=== PATIENT | female | born 1945 | race Caucasian/White ===

== ENCOUNTER → 2019-02-03 | Outpatient (CLI) | payer MEDICARE ==
--- NOTE | 2019-02-03 11:30 | Diagnostic Imaging Report ---
PROCEDURE: US carotid duplex, bilateral. TECHNIQUE: Multiple real-time grayscale images were obtained over the carotid arteries in various projections, bilaterally. Additional spectral analysis and color Doppler duplex images were also obtained. INDICATION: Near-syncope. There is mild plaquing in the distal common carotid arteries and bifurcations with plaque seen in the proximal internal carotid arteries as well. No significant velocity elevation is identified. Both vertebral arteries show antegrade flow. IMPRESSION: Mild bilateral carotid plaque. There is no evidence of a hemodynamically significant stenosis. Parameters based on the consensus panel [place] and Doppler ultrasound criteria published July 2003, Radiology, Volume 229. DOPPLER (peak systolic velocity M/S Right Left CCA .58 .72 ICA Proximal .57 .69 ICA Mid .79 .86 ICA Distal 1.19 1.19 RATIO 2.0 1.6 ECA .95 .77 VERT .60 1.27 Dictated by: Dictated on workstation # [id number]
== END ==
LOC: CARD 10:04
PROVIDERS: ATTEND Internal Medicine Interventional Cardiology
DX: I73.9 Peripheral vascular disease, unspecified (principal); R55 Syncope and collapse; I25.10 Atherosclerotic heart disease of native coronary artery without angina pectoris; J44.9 Chronic obstructive pulmonary disease, unspecified; R42 Dizziness and giddiness; I07.1 Rheumatic tricuspid insufficiency; I65.23 Occlusion and stenosis of bilateral carotid arteries
CPT/HCPCS: 93306; 93880; 93922

== ENCOUNTER 2019-06-08 08:28 | Emergency (ER) | payer MEDICARE ==
[~2019-06-08] VITALS: Ht 167.7 cm; Wt 75.0 kg
[2019-06-08 08:53] LABS: BASOPHILS % (AUTO) 1 % (0-10); EOSINOPHILS # (AUTO) 0.2 10^3/uL (0.0-0.3); EOSINOPHILS % (AUTO) 3 % (0-10); HEMATOCRIT 36 % (35-52); LYMPHOCYTES # (AUTO) 2.5 X 10^3 (1.0-4.0); LYMPHOCYTES % (AUTO) 38 % (12-44); MEAN CORPUSCULAR HEMOGLOBIN 29 PG (25-34); MEAN CORPUSCULAR HGB CONC 34 G/DL (32-36); MEAN CORPUSCULAR VOLUME 86 FL (80-99); MEAN PLATELET VOLUME 9.9 FL (7.4-10.4); MONOCYTES # (AUTO) 0.5 X 10^3 (0.0-1.0); MONOCYTES % (AUTO) 8 % (0-12); NEUTROPHILS # (AUTO) 3.2 X 10^3 (1.8-7.8); NEUTROPHILS % (AUTO) 50 % (42-75); PLATELET COUNT 280 10^3/uL (130-400); WHITE BLOOD COUNT 6.5 10^3/uL (4.3-11.0)
--- NOTE | 2019-06-08 09:00 | ED Cardiac General ---
History of Present Illness General Chief Complaint: Chest Pain Stated Complaint: CHEST HEAVINESS Source: patient Exam Limitations: no limitations History of Present Illness Date Seen by Provider: Jun 08, 2019 Time Seen by Provider: 08:57 Initial Comments Patient complains of left lateral epicondylar pain off-and-on since yesterday. Last a few seconds at a time. There are no precipitating factors. She has a history of coronary artery disease and has had 3 stents. She denies injury to left elbow. She denies chest pain or shortness of air. Timing/Duration: 24 hours, intermittent Severity: moderate Location: other Activities at Onset: none Allergies and Home Medications Patient Home Medication List Home Medication List Reviewed: Yes Review of Systems Review of Systems Constitutional: no symptoms reported EENTM: No Symptoms Reported Respiratory: No Symptoms Reported Cardiovascular: No Symptoms Reported Gastrointestinal: No Symptoms Reported Musculoskeletal: joint pain Skin: no symptoms reported Psychiatric/Neurological: No Symptoms Reported All Other Systems Reviewed Negative Unless Noted: Yes Past Wepudfp-Qixzdt-Fpmhzm Hx Patient Social History Alcohol Use: Denies Use Smoking Status: Former Smoker Physical Abuse: No Sexual Abuse: No Mistreated: No Fear: No Physical Exam Vital Signs Vital Signs - First Documented Capillary Refill : Height, Weight, BMI Height: '" Weight: lbs. oz. kg; BMI Method: General Appearance: No Apparent Distress, WD/WN HEENT: PERRL/EOMI, Pharynx Normal Neck: Supple Respiratory: Chest Non Tender, Lungs Clear, Normal Breath Sounds Cardiovascular: Regular Rate, Rhythm, No Murmur, Normal Peripheral Pulses Gastrointestinal: Soft Extremity: Normal Inspection, Normal Range of Motion, Other (pain reproduced with pressure over left lateral epicondyle) Neurologic/Psychiatric: Alert, No Motor/Sensory Deficits Skin: Normal Color, Warm/Dry Progress/Results/Core Measures Results/Orders Lab Results Laboratory Tests Test 06/08/19 08:43 Range/Units White Blood Count 6.5 4.3-11.0 10^3/uL Red Blood Count 4.16 L 4.35-5.85 10^6/uL Hemoglobin 12.0 11.5-16.0 G/DL Hematocrit 36 35-52 % Mean Corpuscular Volume 86 80-99 FL Mean Corpuscular Hemoglobin 29 25-34 PG Mean Corpuscular Hemoglobin Concent 34 32-36 G/DL Red Cell Distribution Width 14.0 10.0-14.5 % Platelet Count 280 130-400 10^3/uL Mean Platelet Volume 9.9 7.4-10.4 FL Neutrophils (%) (Auto) 50 42-75 % Lymphocytes (%) (Auto) 38 12-44 % Monocytes (%) (Auto) 8 0-12 % Eosinophils (%) (Auto) 3 0-10 % Basophils (%) (Auto) 1 0-10 % Neutrophils # (Auto) 3.2 1.8-7.8 X 10^3 Lymphocytes # (Auto) 2.5 1.0-4.0 X 10^3 Monocytes # (Auto) 0.5 0.0-1.0 X 10^3 Eosinophils # (Auto) 0.2 0.0-0.3 10^3/uL Basophils # (Auto) 0.0 0.0-0.1 10^3/uL Prothrombin Time 12.8 12.2-14.7 SEC INR Comment 0.9 0.8-1.4 Activated Partial Thromboplast Time 26 24-35 SEC Sodium Level 135 135-145 MMOL/L Potassium Level 4.3 3.6-5.0 MMOL/L Chloride Level 96 L 98-107 MMOL/L Carbon Dioxide Level 27 21-32 MMOL/L Anion Gap 12 5-14 MMOL/L Blood Urea Nitrogen 16 7-18 MG/DL Creatinine 0.86 0.60-1.30 MG/DL Estimat Glomerular Filtration Rate > 60 BUN/Creatinine Ratio 19 Glucose Level 109 H 70-105 MG/DL Calcium Level 9.1 8.5-10.1 MG/DL Corrected Calcium 8.9 8.5-10.1 MG/DL Magnesium Level 2.3 1.6-2.4 MG/DL Total Bilirubin 0.3 0.1-1.0 MG/DL Aspartate Amino Transf (AST/SGOT) 25 5-34 U/L Alanine Aminotransferase (ALT/SGPT) 20 0-55 U/L Alkaline Phosphatase 93 40-136 U/L Troponin I < 0.30 <0.30 NG/ML Total Protein 6.4 6.4-8.2 GM/DL Albumin 4.2 3.2-4.5 GM/DL My Orders Orders - FANY LOPEZ MD Cbc With Automated Diff (06/08/19 08:36) Magnesium (06/08/19 08:36) Chest 1 View Ap/Pa Only (06/08/19 08:36) Ekg Tracing (06/08/19 08:36) Comprehensive Metabolic Panel (06/08/19 08:36) Protime With Inr (06/08/19 08:36) Partial Thromboplastin Time (06/08/19 08:36) O2 (06/08/19 08:36) Monitor-Rhythm Ecg Trace Only (06/08/19 08:36) Ed Iv/Invasive Line Start (06/08/19 08:36) Troponin I (06/08/19 08:36) Elbow 3 View Left (06/08/19 08:54) Vital Signs/I&O 06/08/19 06/08/19 08:31 08:31 Temp 36.8 Pulse 65 Resp 20 B/P (MAP) 176/65 (102) Pulse Ox 98 O2 Delivery Room Air Room Air Progress Progress Note : Time: 09:33 Progress Note Patient remains comfortable and stable. Test results discussed with her. Stable for discharge. She has had a few spasms of pain while she was here. No chest pain. Initial ECG Impression Date: Jun 08, 2019 Initial ECG Impression Time: 08:31 Initial ECG Rate: 65 Initial ECG Rhythm: Normal Sinus Initial ECG Intervals: Normal Initial ECG Impression: Normal Departure Impression Primary Impression: Left elbow pain Additional Impression: Lateral epicondylitis Disposition: 01 HOME, SELF-CARE Condition: Stable Departure-Patient Inst. Decision time for Depature: 09:34 Referrals: NEENA ASHRAF MD (PCP/Family) Primary Care Physician Patient Instructions: Lateral Epicondylitis (DC) Add. Discharge Instructions: Ibuprofen for pain. Warm pack to elbow. you may also purchase a tennis elbow splint at the pharmacy. All discharge instructions reviewed with patient and/or family. Voiced understanding. FANY LOPEZ MD Jun 08, 2019 09:00
[2019-06-08 09:09] LABS: INR 0.9 (0.8-1.4); PROTHROMBIN TIME PATIENT 12.8 SEC (12.2-14.7)
[2019-06-08 09:13] LABS: CARBON DIOXIDE 27 MMOL/L (21-32); CHLORIDE 96 MMOL/L (98-107); POTASSIUM 4.3 MMOL/L (3.6-5.0); SODIUM 135 MMOL/L (135-145)
[2019-06-08 09:14] LABS: ALANINE AMINOTRANSFERASE 20 U/L (0-55); ALBUMIN 4.2 GM/DL (3.2-4.5); ALKALINE PHOSPHATASE 93 U/L (40-136); BILIRUBIN,TOTAL 0.3 MG/DL (0.1-1.0); BUN/CREATININE RATIO 19; CALCIUM 9.1 MG/DL (8.5-10.1); CREATININE SERUM 0.86 MG/DL (0.60-1.30); GFR ESTIMATED > 60; GLUCOSE 109 MG/DL (70-105); MAGNESIUM 2.3 MG/DL (1.6-2.4); TOTAL PROTEIN 6.4 GM/DL (6.4-8.2)
--- NOTE | 2019-06-08 09:23 | Diagnostic Imaging Report ---
PATIENT HISTORY: Chest pain. TECHNIQUE: Single frontal view of the chest COMPARISON: None FINDINGS: Lung volumes are large. No focal consolidation is seen. There is no pleural effusion or pneumothorax. The cardiac silhouette is normal in size and contour. There is aortic atherosclerosis. IMPRESSION: Large lung volumes with no acute pulmonary abnormality seen. Dictated by: Dictated on workstation # [id number]
--- NOTE | 2019-06-08 09:25 | Diagnostic Imaging Report ---
PATIENT HISTORY: Left elbow pain. No known trauma. TECHNIQUE: 3 views of the left elbow COMPARISON: None FINDINGS: No acute fracture or dislocation is seen in the left elbow. Alignment appears normal. Joint spaces are generally preserved. There is no significant left elbow joint effusion. IMPRESSION: No acute osseous abnormalities seen in the left elbow. Dictated by: Dictated on workstation # [id number]
[2019-06-08 09:49] VITALS: BP 134/56
== END 2019-06-08 09:49 | disposition home or self-care (01) ==
LOC: EDUNIT# 08:28 → ER FS 08:29
DX: M77.12 Lateral epicondylitis, left elbow (principal); I25.10 Atherosclerotic heart disease of native coronary artery without angina pectoris; Z95.5 Presence of coronary angioplasty implant and graft; Z87.891 Personal history of nicotine dependence
CPT/HCPCS: 36415; 71045; 73080; 80053; 83735; 84484; 85025; 85610; 85730; 93005; 93041

== ENCOUNTER → 2019-09-03 | Outpatient (CLI) | payer MEDICARE ==
--- NOTE | 2019-09-03 10:04 | Diagnostic Imaging Report ---
EXAMINATION: CHEST (PA AND LATERAL) CLINICAL INDICATION: 74-year-old female, shortness of breath. COMPARISON: June 08, 2019. FINDINGS: Stable overall appearance of the cardiomediastinal silhouette. There are aortic calcifications. There is no identified pneumothorax. There are small bilateral pleural effusions. There are streaky opacities in the lung bases. There is slight prominence of pulmonary interstitial markings which is slightly more prominent since comparison study. IMPRESSION: 1. Small bilateral pleural effusions with streaky opacities in the lung bases which may relate to atelectasis and/or infiltrate. 2. Mildly prominent interstitial opacities which do not appear to be slightly more prominent since comparison exam and may relate to mild pulmonary vascular congestion. Dictated by: Dictated on workstation # [id number]
== END ==
LOC: RAD FS 09:42
PROVIDERS: ATTEND Nurse Practitioner
DX: J90 Pleural effusion, not elsewhere classified (principal); J98.4 Other disorders of lung
CPT/HCPCS: 71046

== ENCOUNTER 2019-09-26 07:42 | Emergency (ER) | payer MEDICARE ==
[~2019-09-26] VITALS: Ht 167.7 cm; Wt 77.4 kg
--- NOTE | 2019-09-26 08:00 | ED General ---
General Stated Complaint: DIZZINESS Source of Information: Patient Exam Limitations: No Limitations History of Present Illness Date Seen by Provider: Sep 26, 2019 Time Seen by Provider: 07:48 Initial Comments The patient is a pleasant 74-year-old female who presents for evaluation of dizziness described as lightheadedness over the last 1-2 days. She states that symptoms get worse if she is standing versus if she is lying down. She also states the closing her eyes does seem to help. She denies room spinning/vertiginous symptoms. She reports having had similar lightheadedness in the past but states it always has resolved relatively quickly. 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 She takes Plavix but no other blood thinners. She is noted to be hypertensive upon arrival with a blood pressure of 187/73. She denies headache, neck pain, vision changes, ear ache/ringing, chest pain or shortness of breath, abdominal or back pain, nausea or vomiting, fevers or chills, focal weakness or numbness, difficulty speaking, confusion, or difficulty walking. She is alert and oriented 4, calm, and appears to be in no distress at this time. Timing/Duration: 1-2 Days Severity: Mild Associated Systoms: Denies Symptoms Allergies and Home Medications Allergies Coded Allergies: amoxicillin (Verified Allergy, Unknown, Diarrhea, 09/26/19) Diarrhea clavulanic acid (Verified Allergy, Unknown, Diarrhea, 09/26/19) Diarrhea Patient Home Medication List Home Medication List Reviewed: Yes Review of Systems Review of Systems Constitutional: dizziness EENTM: no symptoms reported Respiratory: no symptoms reported Cardiovascular: no symptoms reported Gastrointestinal: no symptoms reported Genitourinary: no symptoms reported Musculoskeletal: no symptoms reported Skin: no symptoms reported Psychiatric/Neurological: No Symptoms Reported Hematologic/Lymphatic: No Symptoms Reported Immunological/Allergic: no symptoms reported All Other Systems Reviewed Negative Unless Noted: Yes Past Vpczpdg-Qjcggc-Rfkupf Hx Past Med/Social Hx: Reviewed Nursing Past Med/Soc Hx Patient Social History Former Smoker, Quit: Sep 24, 1994 Recent Foreign Travel: No Recent Hopitalizations: No Immunizations Up To Date Tetanus Booster (TDap): Less than 5yrs Date of Pneumonia Vaccine: Oct 02, 2016 Seasonal Allergies Seasonal Allergies: No Past Medical History Surgeries: Yes (Foot surgery, Cornary stents x 3 w/ heart cath) Gallbladder, Hysterectomy, Orthopedic, Tonsillectomy Respiratory: Yes COPD Cardiac: Yes (Heart stents X 24 Jan 2017) Coronary Artery Disease, High Cholesterol, Hypertension Neurological: No Genitourinary: No Gastrointestinal: No Musculoskeletal: No Endocrine: No HEENT: No Cancer: No Psychosocial: No Integumentary: No Blood Disorders: No Physical Exam Vital Signs Vital Signs - First Documented 09/26/19 07:45 Temp 36.8 Pulse 72 Resp 20 B/P (MAP) 187/73 (111) Pulse Ox 97 Capillary Refill : Height, Weight, BMI Height: '" Weight: lbs. oz. kg; 26.00 BMI Method: General Appearance: No Apparent Distress, WD/WN Eyes: Bilateral Eye Normal Inspection, Bilateral Eye PERRL, Bilateral Eye Abnormal EOM HEENT: PERRL/EOMI, TMs Normal, Normal ENT Inspection Neck: Full Range of Motion, Non Tender Respiratory: Chest Non Tender, Lungs Clear, Normal Breath Sounds, No Accessory Muscle Use, No Respiratory Distress Cardiovascular: Regular Rate, Rhythm, No Edema, No JVD, No Murmur Gastrointestinal: Normal Bowel Sounds, No Pulsatile Mass, Non Tender, Soft Extremity: Normal Capillary Refill, Normal Inspection, Pedal Edema (1+ non- pitting edema) Neurologic/Psychiatric: Alert, Oriented x3, No Motor/Sensory Deficits, Normal Mood/Affect Skin: Normal Color, Warm/Dry Progress/Results/Core Measures Suspected Sepsis SIRS Temperature: Pulse: Respiratory Rate: Laboratory Tests 09/26/19 08:25: White Blood Count 4.9 Blood Pressure / Mean: Laboratory Tests 09/26/19 08:25: Creatinine 0.91, Platelet Count 262, Total Bilirubin 0.3 Results/Orders Lab Results Laboratory Tests Test 09/26/19 08:20 09/26/19 08:25 Range/Units Urine Color YELLOW Urine Clarity CLEAR Urine pH 7.5 5-9 Urine Specific Matthews 1.010 L 1.016-1.022 Urine Protein NEGATIVE NEGATIVE Urine Glucose (UA) NEGATIVE NEGATIVE Urine Ketones NEGATIVE NEGATIVE Urine Nitrite NEGATIVE NEGATIVE Urine Bilirubin NEGATIVE NEGATIVE Urine Urobilinogen 0.2 < = 1.0 MG/DL Urine Leukocyte Esterase TRACE NEGATIVE Urine RBC (Auto) NEGATIVE NEGATIVE Urine RBC NONE /HPF Urine WBC 0-2 /HPF Urine Squamous Epithelial Cells 0-2 /HPF Urine Crystals NONE /LPF Urine Bacteria NONE /HPF Urine Casts NONE /LPF Urine Mucus NEGATIVE /LPF Urine Culture Indicated NO White Blood Count 4.9 4.3-11.0 10^3/uL Red Blood Count 3.85 L 4.35-5.85 10^6/uL Hemoglobin 9.1 L 11.5-16.0 G/DL Hematocrit 29 L 35-52 % Mean Corpuscular Volume 75 L 80-99 FL Mean Corpuscular Hemoglobin 24 L 25-34 PG Mean Corpuscular Hemoglobin Concent 32 32-36 G/DL Red Cell Distribution Width 15.7 H 10.0-14.5 % Platelet Count 262 130-400 10^3/uL Mean Platelet Volume 10.1 7.4-10.4 FL Neutrophils (%) (Auto) 58 42-75 % Lymphocytes (%) (Auto) 26 12-44 % Monocytes (%) (Auto) 10 0-12 % Eosinophils (%) (Auto) 5 0-10 % Basophils (%) (Auto) 1 0-10 % Neutrophils # (Auto) 2.8 1.8-7.8 X 10^3 Lymphocytes # (Auto) 1.3 1.0-4.0 X 10^3 Monocytes # (Auto) 0.5 0.0-1.0 X 10^3 Eosinophils # (Auto) 0.2 0.0-0.3 10^3/uL Basophils # (Auto) 0.0 0.0-0.1 10^3/uL Sodium Level 136 135-145 MMOL/L Potassium Level 4.1 3.6-5.0 MMOL/L Chloride Level 102 98-107 MMOL/L Carbon Dioxide Level 24 21-32 MMOL/L Anion Gap 10 5-14 MMOL/L Blood Urea Nitrogen 11 7-18 MG/DL Creatinine 0.91 0.60-1.30 MG/DL Estimat Glomerular Filtration Rate 60 BUN/Creatinine Ratio 12 Glucose Level 97 70-105 MG/DL Calcium Level 8.8 8.5-10.1 MG/DL Corrected Calcium 9.0 8.5-10.1 MG/DL Total Bilirubin 0.3 0.1-1.0 MG/DL Aspartate Amino Transf (AST/SGOT) 22 5-34 U/L Alanine Aminotransferase (ALT/SGPT) 18 0-55 U/L Alkaline Phosphatase 76 40-136 U/L Troponin I < 0.30 <0.30 NG/ML Total Protein 5.6 L 6.4-8.2 GM/DL Albumin 3.7 3.2-4.5 GM/DL My Orders Orders - ROSSYASMIN DO Cbc With Automated Diff (09/26/19 07:45) Chest 1 View Ap/Pa Only (09/26/19 07:45) Ekg Tracing (09/26/19 07:45) Comprehensive Metabolic Panel (09/26/19 07:45) O2 (09/26/19 07:45) Monitor-Rhythm Ecg Trace Only (09/26/19 07:45) Ed Iv/Invasive Line Start (09/26/19 07:45) Troponin I Fs (09/26/19 07:45) Urinalysis (09/26/19 07:45) Ct Head Wo (09/26/19 08:07) Meclizine Tablet (Antivert Tablet) (09/26/19 08:45) Ns Iv 1000 Ml (Sodium Chloride 0.9%) (09/26/19 08:45) Hydralazine Injection (Apresoline Inject (09/26/19 08:45) Diazepam Tablet (Valium Tablet) (09/26/19 10:00) Ondansetron Injection (Zofran Injectio (09/26/19 10:00) Diazepam Tablet (Valium Tablet) (09/26/19 10:00) Medications Given in ED Current Medications Medications Dose Ordered Sig/Roland Route Start Time Stop Time Status Last Admin Dose Admin Diazepam 2.5 mg ONCE ONCE PO 09/26/19 10:00 09/26/19 10:01 DC 09/26/19 10:04 2.5 MG Hydralazine HCl 20 mg ONCE ONCE IV 09/26/19 08:45 09/26/19 08:46 DC 09/26/19 09:11 20 MG Meclizine HCl 25 mg ONCE ONCE PO 09/26/19 08:45 09/26/19 08:46 DC 09/26/19 09:11 25 MG Ondansetron HCl 4 mg ONCE ONCE IVP 09/26/19 10:00 09/26/19 10:01 DC 09/26/19 10:04 4 MG Vital Signs/I&O 09/26/19 07:45 Temp 36.8 Pulse 72 Resp 20 B/P (MAP) 187/73 (111) Pulse Ox 97 Capillary Refill : Progress Note : Progress Note @0940 - patient and daughter updated on lab and imaging results which are unremarkable. Advised the patient that her hemoglobin is low compared to her previous value and that this could contribute to her lightheadedness. She states that she had a colonoscopy approximately 1-2 years ago and denies any current stool abnormalities or rectal bleeding. She states she has an appointment with her well surveying engineer on Sunday and has been encouraged to keep this appointment. Additionally I recommended that she follow up closely with her PCP and return to the emergency Department immediately for new or worsening symptoms. @0945 - The patient states that she is feeling more dizzy, the closing her eyes improves her symptoms, and turning her head makes her symptoms worse. This certainly suggests vertigo is more likely cause of her dizziness. Valium and Zofran ordered. The patient also appears quite anxious at this time. She does report she has had similar episodes in the past which she did not seek medical attention for. @1030 - Pt reports feeling better but still slightly dizzy. She was having a headache earlier but this has resolved. She denies vision changes, weakness/numbness, nausea, or any other symptoms. @1100 - the patient states that she would like to go home and has no further complaints. Workup today fails to reveal any emergent pathology. The most likely etiology of the patient's symptoms likely benign positional vertigo. Additionally she does have some anemia which could be contributing to her lightheaded feeling. Advised follow-up with cardiology and PCP and return to the emergency Department immediately for new or worsening symptoms. The patient expresses verbal understanding and agreement with the plan and is stable for discharge. ECG Initial ECG Impression Date: Sep 26, 2019 Initial ECG Impression Time: 08:22 Comment Normal sinus rhythm, rate of 64, no acute ischemic findings noted, no STEMI, reviewed and interpreted by myself Diagnostic Imaging Diagonstic Imaging: CT Comments [facility] [place] [place] NAME: CARIEJAKE A MED REC#: [id number] PT STATUS: REG ER : 1945 PHYSICIAN: YASMIN HAWKINS DO ADMIT DATE: 09/26/19/ER FS Draft Date of Exam:09/26/19 CT HEAD WO PROCEDURE: CT head without contrast. TECHNIQUE: Multiple contiguous axial images were obtained through the brain without the use of intravenous contrast. Auto Exposure Controls were utilized during the CT exam to meet ALARA standards for radiation dose reduction. INDICATION: Dizziness. No prior studies are available for comparison. There is some prominence of ventricles and sulci consistent with mild cerebral atrophy. No sulcal effacement or midline shift is detected. No acute intra-axial or extra-axial hemorrhage is detected. Cisterns are patent. Visualized paranasal sinuses are clear. IMPRESSION: No acute intracranial process is detected. Dictated on workstation # [id number] Dict: 09/26/1948 Trans: 09/26/19 0848 CVB [id number] Interpreted by: LINDA ESCOBAR MD Electronically signed by: Departure Impression Primary Impression: Dizziness Additional Impression: Anemia Disposition: 01 HOME, SELF-CARE Condition: Improved Departure-Patient Inst. Referrals: NEENA ASHRAF MD (PCP/Family) Primary Care Physician Patient Instructions: Vertigo (a Type of Dizziness) (DC) Add. Discharge Instructions: Take the prescribed medicine as needed for dizziness, as directed. Follow-up with your well surveying engineer as he previously arranged and also make an appointment to follow-up with your PCP in the next 2-3 days. Return to the emergency Department immediately for new or worsening symptoms. Scripts Meclizine HCl (Meclizine HCl) 25 Mg Tablet 25 MG PO Q6H PRN for DIZZINESS for 7 Days, #20 TAB Prov: YASMIN HAWKINS DO 09/26/19 YASMIN HAWKINS DO Sep 26, 2019 08:00
--- NOTE | 2019-09-26 08:11 | Diagnostic Imaging Report ---
INDICATION: Shortness of breath. Portable chest 7:39 AM Heart size and pulmonary vascularity are normal. Lungs are clear. There are no effusions or pneumothoraces. IMPRESSION: Negative chest. Dictated by: Dictated on workstation # [id number]
[2019-09-26 08:43] LABS: BASOPHILS % (AUTO) 1 % (0-10); EOSINOPHILS # (AUTO) 0.2 10^3/uL (0.0-0.3); EOSINOPHILS % (AUTO) 5 % (0-10); HEMATOCRIT 29 % (35-52); HEMOGLOBIN 9.1 G/DL (11.5-16.0); LYMPHOCYTES # (AUTO) 1.3 X 10^3 (1.0-4.0); LYMPHOCYTES % (AUTO) 26 % (12-44); MEAN CORPUSCULAR HEMOGLOBIN 24 PG (25-34); MEAN CORPUSCULAR HGB CONC 32 G/DL (32-36); MEAN CORPUSCULAR VOLUME 75 FL (80-99); MEAN PLATELET VOLUME 10.1 FL (7.4-10.4); MONOCYTES # (AUTO) 0.5 X 10^3 (0.0-1.0); MONOCYTES % (AUTO) 10 % (0-12); NEUTROPHILS # (AUTO) 2.8 X 10^3 (1.8-7.8); NEUTROPHILS % (AUTO) 58 % (42-75); PLATELET COUNT 262 10^3/uL (130-400); RED CELL DISTRIBUTION WIDTH 15.7 % (10.0-14.5); WHITE BLOOD COUNT 4.9 10^3/uL (4.3-11.0)
[2019-09-26] MEDS ORDERED: hydrALAZINE (APESOLINE) 20 MG/ML VIAL IV ONE (08:45)
[2019-09-26] MEDS ORDERED: NS IV 1000 ML 1,000 ML IV SCH (08:45)
[2019-09-26] MEDS ORDERED: MECLIZINE 25 MG (ANTIVERT) TAB PO ONE (08:45)
[2019-09-26 08:47] LABS: BILIRUBIN,URINE NEGATIVE (NEGATIVE); CLARITY,URINE CLEAR; COLOR,URINE YELLOW; GLUCOSE, URINE (UA) NEGATIVE (NEGATIVE); KETONES,URINE NEGATIVE (NEGATIVE); LEUKOCYTE ESTERASE ,URINE TRACE (NEGATIVE); NITRITE,URINE NEGATIVE (NEGATIVE); PH,URINE 7.5 (5-9); PROTEIN,URINE NEGATIVE (NEGATIVE); SQUAMOUS EPITHELIAL CELL,UR 0-2 /HPF; WBC,URINE 0-2 /HPF
--- NOTE | 2019-09-26 08:48 | Diagnostic Imaging Report ---
PROCEDURE: CT head without contrast. TECHNIQUE: Multiple contiguous axial images were obtained through the brain without the use of intravenous contrast. Auto Exposure Controls were utilized during the CT exam to meet ALARA standards for radiation dose reduction. INDICATION: Dizziness. No prior studies are available for comparison. There is some prominence of ventricles and sulci consistent with mild cerebral atrophy. No sulcal effacement or midline shift is detected. No acute intra-axial or extra-axial hemorrhage is detected. Cisterns are patent. Visualized paranasal sinuses are clear. IMPRESSION: No acute intracranial process is detected. Dictated by: Dictated on workstation # [id number]
[2019-09-26 09:03] LABS: ALBUMIN 3.7 GM/DL (3.2-4.5); BILIRUBIN,TOTAL 0.3 MG/DL (0.1-1.0); CALCIUM 8.8 MG/DL (8.5-10.1); CREATININE SERUM 0.91 MG/DL (0.60-1.30); POTASSIUM 4.1 MMOL/L (3.6-5.0); TOTAL PROTEIN 5.6 GM/DL (6.4-8.2)
[2019-09-26] MEDS ORDERED: ONDANSETRON 4 MG/2 ML (SDV) Z0FRAN IVP ONE (10:00)
[2019-09-26] MEDS ORDERED: DIAZEPAM 5 MG (VALIUM) TABLET PO ONE (10:00)
[2019-09-26] MEDS ORDERED: DIAZEPAM 2 MG (VALIUM) TAB PO PRN ×2 (10:00)
[2019-09-26] MEDS ORDERED: MECL-106 PO (10:18)
[2019-09-26 11:15] VITALS: BP 116/52
== END 2019-09-26 11:15 | disposition home or self-care (01) ==
LOC: EDUNIT# 07:42 → ER FS 07:43
DX: R42 Dizziness and giddiness (principal); D64.9 Anemia, unspecified; J44.9 Chronic obstructive pulmonary disease, unspecified; I25.10 Atherosclerotic heart disease of native coronary artery without angina pectoris; I10 Essential (primary) hypertension; E78.00 Pure hypercholesterolemia, unspecified; Z95.5 Presence of coronary angioplasty implant and graft; Z79.02 Long term (current) use of antithrombotics/antiplatelets; Z88.1 Allergy status to other antibiotic agents; Z87.891 Personal history of nicotine dependence; Z90.710 Acquired absence of both cervix and uterus; Z90.89 Acquired absence of other organs
CPT/HCPCS: 36415; 70450; 71045; 80053; 81000; 84484; 85025; 93005; 93041; 96361; 96374; 96375

== ENCOUNTER 2019-10-27 10:30 | Outpatient (RCR) | payer MEDICARE ==
[~2019-10-27 10:30] MED LIST: MECL-149 PO
[2019-11-19] MEDS ORDERED: ONDA4TAB11 PO (17:13)
== END 2020-01-01 | disposition home or self-care (01) ==
LOC: CARD 10:30
PROVIDERS: ATTEND Internal Medicine Interventional Cardiology
DX: R42 Dizziness and giddiness (principal); I25.10 Atherosclerotic heart disease of native coronary artery without angina pectoris; E78.5 Hyperlipidemia, unspecified; I10 Essential (primary) hypertension

== ENCOUNTER 2019-11-19 14:57 | Emergency (ER) | payer MEDICARE ==
--- NOTE | 2019-11-19 15:11 | ED GI ---
General Stated Complaint: ABD PAIN Source of Information: Patient Exam Limitations: No Limitations History of Present Illness Date Seen by Provider: Nov 19, 2019 Time Seen by Provider: 15:11 Initial Comments Patient presents with diffuse abdominal pain, nausea. History of present illness, patient diagnosed with urinary tract infection about 6 days ago and was started on Bactrim. A couple days later she started to develop some abdominal discomfort and upset stomach, called her PCP and he called in a prescription for Zofran and advised her to take a probiotic. She states she also took a laxative as she was constipated and her bowels did clear. Denies any fever or chills. Denies chest pain or shortness of air. Allergies and Home Medications Allergies Coded Allergies: amoxicillin (Verified Allergy, Unknown, Diarrhea, 09/26/19) Diarrhea clavulanic acid (Verified Allergy, Unknown, Diarrhea, 09/26/19) Diarrhea Home Medications Meclizine HCl 25 Mg Tablet, 25 MG PO Q6H PRN for DIZZINESS Prescribed by: YASMIN HAWKINS on 09/26/19 1018 Ondansetron 4 Mg Tab.rapdis, 4 MG PO Q6H Prescribed by: JCARLOS HILLIARD on 11/19/19 1713 Patient Home Medication List Home Medication List Reviewed: Yes Review of Systems Review of Systems Constitutional: see HPI; No dizziness, No fever; malaise; No weakness Respiratory: Denies Cough, Denies Orthopnea Cardiovascular: Denies Chest Pain, Denies Edema, Denies Irregular Heart Rate Gastrointestinal: See HPI; Denies Abdomen Distended; Abdominal Pain; Denies Constipated, Denies Diarrhea; Nausea, Poor Appetite; Denies Vomiting Genitourinary: See HPI, Burning; Denies Frequency, Denies Flank Pain, Denies Hematuria; Pain Musculoskeletal: see HPI; No back pain, No joint pain Skin: No change in color, No change in hair/nails Past Hahwavf-Crytjj-Dpnptx Hx Past Med/Social Hx: Reviewed Nursing Past Med/Soc Hx Patient Social History Former Smoker, Quit: Sep 24, 1994 Recent Foreign Travel: No Contact w/Someone Who Travel: No Recent Hopitalizations: No Immunizations Up To Date Tetanus Booster (TDap): Less than 5yrs Date of Pneumonia Vaccine: Oct 02, 2016 Seasonal Allergies Seasonal Allergies: No Past Medical History Surgeries: Yes (Foot surgery, Cornary stents x 3 w/ heart cath) Gallbladder, Hysterectomy, Orthopedic, Tonsillectomy Respiratory: Yes COPD Cardiac: Yes (Heart stents X 24 Jan 2017) Coronary Artery Disease, High Cholesterol, Hypertension Neurological: No Genitourinary: No Gastrointestinal: No Musculoskeletal: No Endocrine: No HEENT: No Cancer: No Psychosocial: No Integumentary: No Blood Disorders: No Physical Exam Vital Signs Vital Signs - First Documented 11/19/19 15:23 Temp 36.1 Pulse 59 Resp 17 B/P (MAP) 118/76 (90) Pulse Ox 99 O2 Delivery Room Air Capillary Refill : Height/Weight/BMI Height: '" Weight: lbs. oz. kg; 27.00 BMI Method: General Appearance: WD/WN, no apparent distress Neck: non-tender, full range of motion, supple Respiratory: chest non-tender, lungs clear, normal breath sounds Cardiovascular: regular rate, rhythm, no edema, no gallop Gastrointestinal: normal bowel sounds, soft, no organomegaly, no pulsatile mass; No distended, No guarding, No rebound; tenderness (diffuse,non-localized); No mass, No hepatomegaly, No spleenomegaly Extremities: no pedal edema, no calf tenderness, normal capillary refill Back: no CVA tenderness, no vertebral tenderness Progress/Results/Core Measures Results/Orders Lab Results Laboratory Tests Test 11/19/19 15:00 11/19/19 15:10 Range/Units Urine Color YELLOW Urine Clarity SL CLOUDY Urine pH 6.5 5-9 Urine Specific [place] 1.020 1.016-1.022 Urine Protein NEGATIVE NEGATIVE Urine Glucose (UA) NEGATIVE NEGATIVE Urine Ketones NEGATIVE NEGATIVE Urine Nitrite NEGATIVE NEGATIVE Urine Bilirubin NEGATIVE NEGATIVE Urine Urobilinogen 0.2 < = 1.0 MG/DL Urine Leukocyte Esterase NEGATIVE NEGATIVE Urine RBC (Auto) NEGATIVE NEGATIVE Urine RBC NONE /HPF Urine WBC NONE /HPF Urine Squamous Epithelial Cells 5-10 /HPF Urine Crystals PRESENT H /LPF Urine Amorphous Sediment MOD JHON URATES H /LPF Urine Bacteria NONE /HPF Urine Casts NONE /LPF Urine Mucus SLIGHT /LPF Urine Culture Indicated NO White Blood Count 5.3 4.3-11.0 10^3/uL Red Blood Count 4.18 L 4.35-5.85 10^6/uL Hemoglobin 11.1 L 11.5-16.0 G/DL Hematocrit 33 L 35-52 % Mean Corpuscular Volume 79 L 80-99 FL Mean Corpuscular Hemoglobin 27 25-34 PG Mean Corpuscular Hemoglobin Concent 34 32-36 G/DL Red Cell Distribution Width 21.1 H 10.0-14.5 % Platelet Count 256 130-400 10^3/uL Mean Platelet Volume 10.9 H 7.4-10.4 FL Neutrophils (%) (Auto) 61 42-75 % Lymphocytes (%) (Auto) 26 12-44 % Monocytes (%) (Auto) 8 0-12 % Eosinophils (%) (Auto) 4 0-10 % Basophils (%) (Auto) 0 0-10 % Neutrophils # (Auto) 3.2 1.8-7.8 X 10^3 Lymphocytes # (Auto) 1.4 1.0-4.0 X 10^3 Monocytes # (Auto) 0.4 0.0-1.0 X 10^3 Eosinophils # (Auto) 0.2 0.0-0.3 10^3/uL Basophils # (Auto) 0.0 0.0-0.1 10^3/uL Sodium Level 124 *L 135-145 MMOL/L Potassium Level 4.9 3.6-5.0 MMOL/L Chloride Level 86 L 98-107 MMOL/L Carbon Dioxide Level 26 21-32 MMOL/L Anion Gap 12 5-14 MMOL/L Blood Urea Nitrogen 16 7-18 MG/DL Creatinine 1.18 0.60-1.30 MG/DL Estimat Glomerular Filtration Rate 45 BUN/Creatinine Ratio 14 Glucose Level 101 70-105 MG/DL Calcium Level 9.0 8.5-10.1 MG/DL Corrected Calcium 8.9 8.5-10.1 MG/DL Total Bilirubin 0.3 0.1-1.0 MG/DL Aspartate Amino Transf (AST/SGOT) 37 H 5-34 U/L Alanine Aminotransferase (ALT/SGPT) 27 0-55 U/L Alkaline Phosphatase 84 40-136 U/L Total Protein 6.1 L 6.4-8.2 GM/DL Albumin 4.1 3.2-4.5 GM/DL Lipase 48 8-78 U/L My Orders Orders - ROVENSTJCARLOS ALVARADO DO Urinalysis (11/19/19 15:11) Ed Iv/Invasive Line Start (11/19/19 15:28) Cbc With Automated Diff (11/19/19 15:28) Comprehensive Metabolic Panel (11/19/19 15:28) Lipase (11/19/19 15:28) Ns Iv 1000 Ml (Sodium Chloride 0.9%) (11/19/19 15:30) Ondansetron Injection (Zofran Injectio (11/19/19 15:30) Ct Abdomen/Pelvis W (11/19/19 16:05) Iohexol Injection (Omnipaque 350 Mg/Ml 1 (11/19/19 16:15) Received Contrast (Hold Metformin- Contr (11/19/19 16:15) Sodium Chloride Flush (Catheter Flush Sy (11/19/19 16:15) Ns (Ivpb) (Sodium Chloride 0.9% Ivpb Bag (11/19/19 16:15) Medications Given in ED Current Medications Medications Dose Ordered Sig/Roland Route Start Time Stop Time Status Last Admin Dose Admin Iohexol 100 ml ONCE ONCE IV 11/19/19 16:15 11/19/19 16:16 DC 11/19/19 16:40 100 ML Ondansetron HCl 4 mg ONCE ONCE IVP 11/19/19 15:30 11/19/19 15:31 DC 11/19/19 15:41 4 MG Sodium Chloride 10 ml NEEDED PRN IV 11/19/19 16:15 11/19/19 17:33 DC 11/19/19 16:40 10 ML Sodium Chloride 100 ml ONCE ONCE IV 11/19/19 16:15 11/19/19 16:16 DC 11/19/19 16:40 80 ML Vital Signs/I&O 11/19/19 11/19/19 15:23 17:33 Temp 36.1 36.1 Pulse 59 58 Resp 17 18 B/P (MAP) 118/76 (90) 124/60 (90) Pulse Ox 99 98 O2 Delivery Room Air Progress Progress Note : Progress Note Discussed normal urinalysis without evidence of urinary tract infection. Advised to discontinue antibiotic. Also questioned about freewater intake due to patient being significantly hyponatremic. States she does have a history of this years ago for unknown reasons. States she does drink a lot of water, however she did not think she was drinking any more than usual, but she has not been eating as much last few days. Discussed normal CT results without any acute findings, just incidental lumbar spine abnormalities which can be discussed with her PCP. Advised to increase her sodium intake over the next couple days in the follow-up with her PCP the end of this week for reevaluation for hyponatremia. Also encouraged to follow up with GI regarding planned upper and lower endoscopy end of November and to discuss with PCP regarding her recent episode of hematuria and possible need for further workup. Advised come to the ER if her symptoms progress. Departure Impression Primary Impression: Abdominal pain Qualified Codes: R10.84 - Generalized abdominal pain Additional Impressions: Nausea alone Hyponatremia Disposition: HOME, SELF-CARE Condition: Improved Departure-Patient Inst. Referrals: NEENA ASHRAF MD (PCP/Family) Primary Care Physician Patient Instructions: Acute Abdomen (Belly Pain), Adult (DC), Hyponatremia (DC) Scripts Ondansetron (Ondansetron Odt) 4 Mg Tab.rapdis 4 MG PO Q6H for Nausea/Vomiting, #10 TAB Prov: JCARLOS HILLIARD DO 11/19/19 JCARLOS HILLIARD DO Nov 19, 2019 15:11
[2019-11-19 15:28] LABS: BILIRUBIN,URINE NEGATIVE (NEGATIVE); CLARITY,URINE SL CLOUDY; COLOR,URINE YELLOW; GLUCOSE, URINE (UA) NEGATIVE (NEGATIVE); KETONES,URINE NEGATIVE (NEGATIVE); LEUKOCYTE ESTERASE ,URINE NEGATIVE (NEGATIVE); NITRITE,URINE NEGATIVE (NEGATIVE); PH,URINE 6.5 (5-9); PROTEIN,URINE NEGATIVE (NEGATIVE)
[2019-11-19 15:29] LABS: AMORPHOUS SEDIMENT,UR MOD AMOR URATES /LPF
[2019-11-19] MEDS ORDERED: ONDANSETRON 4 MG/2 ML (SDV) Z0FRAN IVP ONE (15:30)
[2019-11-19] MEDS ORDERED: NS IV 1000 ML 1,000 ML IV SCH (15:30)
[2019-11-19 15:35] LABS: HEMATOCRIT 33 % (35-52); HEMOGLOBIN 11.1 G/DL (11.5-16.0); MEAN CORPUSCULAR HEMOGLOBIN 27 PG (25-34); MEAN CORPUSCULAR VOLUME 79 FL (80-99); WHITE BLOOD COUNT 5.3 10^3/uL (4.3-11.0)
[2019-11-19 15:36] LABS: BASOPHILS % (AUTO) 0 % (0-10); EOSINOPHILS # (AUTO) 0.2 10^3/uL (0.0-0.3); EOSINOPHILS % (AUTO) 4 % (0-10); LYMPHOCYTES # (AUTO) 1.4 X 10^3 (1.0-4.0); LYMPHOCYTES % (AUTO) 26 % (12-44); MEAN CORPUSCULAR HGB CONC 34 G/DL (32-36); MEAN PLATELET VOLUME 10.9 FL (7.4-10.4); MONOCYTES # (AUTO) 0.4 X 10^3 (0.0-1.0); MONOCYTES % (AUTO) 8 % (0-12); NEUTROPHILS # (AUTO) 3.2 X 10^3 (1.8-7.8); NEUTROPHILS % (AUTO) 61 % (42-75); PLATELET COUNT 256 10^3/uL (130-400); RED CELL DISTRIBUTION WIDTH 21.1 % (10.0-14.5)
[2019-11-19 15:57] LABS: ALBUMIN 4.1 GM/DL (3.2-4.5); BILIRUBIN,TOTAL 0.3 MG/DL (0.1-1.0); CREATININE SERUM 1.18 MG/DL (0.60-1.30); POTASSIUM 4.9 MMOL/L (3.6-5.0); TOTAL PROTEIN 6.1 GM/DL (6.4-8.2)
[2019-11-19] MEDS ORDERED: NS 100 ML (IVPB) BAG IV ONE (16:15)
[2019-11-19] MEDS ORDERED: IOHEXOL 350 MG/ML 100 ML (OMNIPAQUE 350) VIAL IV ONE (16:15)
[2019-11-19] MEDS ORDERED: CATHETER FLUSH 10 ML SYR IV PRN (16:15)
[2019-11-19] MEDS ORDERED: HOLD METFORMIN - RECEIVED CONTRAST 20 ML VIAL IV SCH (16:15)
--- NOTE | 2019-11-19 16:57 | Diagnostic Imaging Report ---
EXAMINATION: CT Abdomen and Pelvis with intravenous contrast. TECHNIQUE: Multiple contiguous axial images were obtained through the abdomen and pelvis after the uneventful administration of intravenous contrast. All CT scans use one or more of the following dose optimizing techniques: automated exposure control, MA and/or KvP adjustment based on a patient size and exam type, or iterative reconstruction. HISTORY: Abdominal pain. Nausea and vomiting. Recent urinary tract infection. COMPARISON: None available. FINDINGS: The heart is unremarkable. Emphysema is noted in the lung bases. No focal consolidations. A hypoattenuating focus is seen in the right hepatic lobe measuring 1.5 cm. No enhancing hepatic lesions are seen. The portal vein is patent. The gallbladder surgically absent. The spleen, pancreas, adrenal glands, and kidneys have a normal appearance. There is no pathologically enlarged mesenteric or retroperitoneal adenopathy. The bowel loops are nondilated. There is no free fluid or free air. There is grade 1 anterolisthesis of L3 on L4 and L4 on L5. There is right convexity curvature of the lumbar spine centered at L3. Endplate degenerative changes are seen at the L3 L4L 5S1 levels. No acute fracture or dislocation. There is calcified aortic and iliac atherosclerotic plaque without evidence of aneurysm. Small fat-containing umbilical hernia is noted. Ureters and bladder are grossly normal. There is no free air, loculated collection, or adenopathy in the pelvis. IMPRESSION: 1. No acute abnormalities are seen in the abdomen and pelvis. No inflammatory changes, free fluid, or free air. No hydronephrosis or radiographic evidence of cystitis. 2. Emphysema in the lung bases. 3. Grade 1 anterolisthesis of L3 on L4 and L4 on L5. Dictated by: Dictated on workstation # [id number]
[2019-11-19] MEDS ORDERED: ONDA4TAB11 PO (17:13)
[2019-11-19 17:33] VITALS: BP 124/60
== END 2019-11-19 17:33 | disposition home or self-care (01) ==
LOC: EDUNIT# 14:57 → ER FS 14:59
DX: R10.84 Generalized abdominal pain (principal); E87.1 Hypo-osmolality and hyponatremia; Z88.1 Allergy status to other antibiotic agents; Z88.8 Allergy status to other drugs, medicaments and biological substances; Z87.891 Personal history of nicotine dependence
CPT/HCPCS: 36415; 74177; 80053; 81000; 83690; 85025; 96374

== ENCOUNTER → 2019-12-15 | Outpatient (CLI) | payer MEDICARE ==
[~2019-12-15] MED LIST changes: +ONDA4TAB11 PO
== END | disposition home or self-care (01) ==
LOC: PREOP 05:42
PROVIDERS: ATTEND Surgery
DX: Z01.818 Encounter for other preprocedural examination (principal)

== ENCOUNTER → 2020-06-07 | Outpatient (CLI) | payer MEDICARE | LOC: CARD 13:00 | PROVIDERS: ATTEND Internal Medicine Interventional Cardiology | DX: I08.1 Rheumatic disorders of both mitral and tricuspid valves (principal); I25.10 Atherosclerotic heart disease of native coronary artery without angina pectoris; I10 Essential (primary) hypertension | CPT/HCPCS: 93306 ==

== ENCOUNTER 2020-07-06 15:38 | Outpatient (RCR) | payer MEDICARE ==
[~2020-07-06] VITALS: Ht 167 cm; Wt 75.0 kg
[~2020-07-06 15:38] MED LIST changes: +ASCO500C15 PO; +CARV25TA PO; +CHOL200074 PO; +FLUT1DIS28 IH; +FURO-124 PO; +LOSA100T57 PO; +LOVA40TA2 PO; +MAGN250T13 PO; +MELA10CA2 PO; +POTA10CA43 PO; +RT-ALBUINH IH; +TIOT18CA2 IH; +VIT-10 PO; +ZOLP10TA PO
== END 2020-07-06 15:39 | disposition home or self-care (01) ==
LOC: PREOP 15:38
PROVIDERS: ATTEND Surgery
DX: Z01.818 Encounter for other preprocedural examination (principal)

== ENCOUNTER 2020-07-12 08:42 | Day surgery (SDC) | payer MEDICARE ==
[~2020-07-12] VITALS: Ht 167 cm; Wt 75.0 kg
[2020-07-12] MEDS ORDERED: LACTATED RINGERS 1,000 ML IV STA (08:51)
[2020-07-12] MEDS ORDERED: LACTATED RINGERS 1,000 ML IV ONE (08:51)
[2020-07-12 09:00] VITALS: BP 160/82
[2020-07-12] MEDS ORDERED: HURRICAINE EXT TUBE (BENZOCAINE) XX PRN (09:00)
--- NOTE | 2020-07-12 09:25 | Progress Note-Pre Operative ---
Pre-Operative Progress Note H&P Reviewed The H&P was reviewed, patient examined and no changes noted. Time Seen by Provider: 09:03 Date H&P Reviewed: Jul 12, 2020 Time H&P Reviewed: 09:03 Pre-Operative Diagnosis: Anemia, +hemoccult, Dysphonia LEYLA LARA DO Jul 12, 2020 09:24
[2020-07-12] MEDS ORDERED: PROPOFOL INJECTION 50 ML IV ONE (09:46)
[2020-07-12] MEDS ORDERED: MIDAZOLAM 2 MG/2 ML (VERSED) VIAL ONE (09:53)
[2020-07-12 10:30] VITALS: BP 97/54
--- NOTE | 2020-07-12 10:32 | Progress Note-Post Operative ---
Post-Operative Progess Note Surgeon (s)/Document Management Analyst (s) Surgeon LEYLA LARA DO Document Management Analyst: DOMENIC Hinkle Pre-Operative Diagnosis Anemia, +hemoccult, Dysphonia Post-Operative Diagnosis Gastritis Hiatal Hernia ??Baker's Diverticula Int hemorrhoids Procedure & Operative Findings Date of Procedure 07/12/20 Procedure Performed/Findings EGD with bx Colonoscopy Anesthesia Type IV sedation by ASSISTANT STATISTICIAN Estimated Blood Loss Estimated blood loss (mL): scant Specimens/Packing Specimens Removed antral bx Body of stomach bx GE jxn bx LEYLA LARA DO Jul 12, 2020 10:32
--- NOTE | 2020-07-12 10:33 | Endoscopy Discharge Instruct ---
Endo Procedure/Findings Findings 1.: Gastritis 2.: Hiatal Hernia, Baker's Esophagus (possibly) 3.: Diverticulosis 4.: Internal Hemorrhoids Discharge Instructions - Activity: You might feel a little sleepy until tomorrow. This is due to the medicine you received to relax you. Until tomorrow, you should: NOT drive a car, operate machinery or power tools. NOT drink any alcoholic beverages. NOT make any important decisions or sign importortant papers. Do not return to work until tomorrow, unless otherwise instructed. Resume previous activities tomorrow. Diet: Start by taking liquids. If you tolerate liquids, advance to solid food. 1.: Colonscopy in 10 years, EGD in 1 year Notify Physician - If you experience excessive bleeding, unusual abdominal pain, fever, or chest pain, contact your doctor immediately. LEYLA LARA DO Jul 12, 2020 10:33
[2020-07-12 10:35] VITALS: BP 160/73
--- NOTE | 2020-07-12 10:35 | NUR ---
TO ENDO FROM PROCEDURE PER CART. ALERT, REPORTS SLIGHT HEADACHE, RATED 1-2 ON NUMERIC SCALE. PASSING FLATUS. PO FLUIDS PROVIDED.
[2020-07-12 11:15] VITALS: BP 179/80
[2020-07-12 11:28] VITALS: BP 179/80
--- NOTE | 2020-07-12 11:28 | NUR ---
TAKING PO FLUIDS WITHOUT PROBLEM. NO CHANGE IN PAIN ASSESSMENT, REPORTS HEADACHE MILD DISCOMFORT. STATES SHE IS READY FOR DISMISSAL.
[2020-07-12] MEDS ORDERED: HURRICAINE EXT TUBE (BENZOCAINE) ONE (12:42)
--- NOTE | 2020-07-12 13:52 | Anesthesia-General Post-Op ---
MAC Patient Condition Mental Status/LOC: Same as Preop Cardiovascular: Satisfactory Nausea/Vomiting: Absent Respiratory: Satisfactory Pain: Controlled Complications: Absent Post Op Complications Complications None Follow Up Care/Instructions Patient Instructions None needed. Anesthesiology Discharge Order Discharge Order Patient is doing well, no complaints, stable vital signs, no apparent adverse anesthesia problems. No complications reported per nursing. DARIELA BENAVIDES CRNA Jul 12, 2020 13:52
--- NOTE | 2020-07-13 03:53 | OPERATIVE REPORT ---
DATE OF SERVICE: 07/12/2020 PREOPERATIVE DIAGNOSES: Positive Hemoccult and dysphonia. POSTOPERATIVE DIAGNOSES: 1. Gastritis, hiatal hernia, questionable Baker's esophagus. 2. Diverticula. 3. Internal hemorrhoids. PROCEDURES: 1. EGD with biopsy. 2. Colonoscopy. SURGEON: Silvio Haider DO MUSIC MINISTER: HAN Hinlke. ANESTHESIA: IV sedation by the DRAGLINE OPERATOR. SPECIMEN: Biopsy from the antrum, biopsy from the body of stomach and biopsy from the GE junction. BLOOD LOSS: Scant. FLUIDS: Per anesthesia. POSTOPERATIVE CONDITION: Stable. INDICATION FOR PROCEDURE: The patient is a 75-year-old female who has been having positive Hemoccult and some dysphonia, and needed a workup. FINDINGS: The patient had some gastritis, hiatal hernia and what looked like possibly Baker's esophagus may be secondary to her hiatal hernia. In the colon, she had some diverticula and internal hemorrhoids, but nothing obvious in the colon; also thought I may have seen some thickened cords. PROCEDURE NOTE: After informed consent was obtained, the patient was brought to the endoscopy suite, placed in bed in left lateral decubitus position. She was administered IV sedation by the DRAGLINE OPERATOR who then monitored her vitals the entire time, heart rate, blood pressure and pulse ox and the scope was inserted, started with the EGD, placing scope down the mouth through the esophagus into the stomach. On the way down, noted some changes at the GE junction. Pushed all the way and noted some changes in the stomach and took a picture of the antrum and then pushed into the duodenum. Duodenum looked fine, took a picture. Pulled back, retroflexed the scope, saw hiatal hernia and then did a biopsy of the antrum, biopsy of body of stomach and then pulled the scope into the GE junction, then did 2 biopsies of the GE junction, pulled the scope up the esophagus, which looked okay and then up to the cords. Cords actually looked a little bit thickened and were close together, but did not see any obvious polyps or masses. and back of the mouth looked okay. At this point, then removed the scope, had suctioned the air out of the stomach. Changed gloves, changed scopes, went down below, started the colonoscopy. Pushed all the way into about [address] and in the descending colon saw diverticula and then able to push all the way to cecum, took a picture of appendiceal orifice, noted the ileocecal valve and then slowly withdrew the scope insufflating to look circumferentially at the mai looking the cecum, up the ascending colon to the hepatic flexure, then down the transverse colon, splenic flexure, into the descending colon and down into the sigmoid. In the sigmoid, saw a couple of small diverticula as well. I then continued down into the rectum, retroflexing the rectal vault, saw some very minimal internal hemorrhoids, took a picture, had retroflexed the rectal vault, then removed the scope. The patient tolerated the procedure. She was recovered in endoscopy suite. Job ID: [id number] DocumentID: [id number] Dictated Date: 07/12/2020 17:55:58 Machine Operator General Date: 07/13/2020 03:52:32 Dictated By: DO ANDREA PATTERSON
== END 2020-07-12 11:28 | disposition home or self-care (01) ==
LOC: ENDO 08:42
PROVIDERS: ATTEND Surgery
DX: K29.50 Unspecified chronic gastritis without bleeding (principal); K44.9 Diaphragmatic hernia without obstruction or gangrene; K20.90 Esophagitis, unspecified without bleeding; K64.8 Other hemorrhoids; K57.30 Diverticulosis of large intestine without perforation or abscess without bleeding; I10 Essential (primary) hypertension; I25.10 Atherosclerotic heart disease of native coronary artery without angina pectoris; J43.9 Emphysema, unspecified; E78.5 Hyperlipidemia, unspecified; R49.0 Dysphonia; Z79.82 Long term (current) use of aspirin; Z79.899 Other long term (current) drug therapy; Z79.51 Long term (current) use of inhaled steroids; Z88.1 Allergy status to other antibiotic agents; Z88.8 Allergy status to other drugs, medicaments and biological substances; Z95.5 Presence of coronary angioplasty implant and graft; Z87.891 Personal history of nicotine dependence; Z80.0 Family history of malignant neoplasm of digestive organs
CPT/HCPCS: 88305

== ENCOUNTER 2020-12-19 16:09 | Emergency (ER) | payer MEDICARE ==
[~2020-12-19 16:09] MED LIST changes: -ASCO500C15 PO; +ASCO500C18 PO
--- NOTE | 2020-12-19 17:02 | Diagnostic Imaging Report ---
PROCEDURE: CT lumbar spine without contrast. TECHNIQUE: Multiple contiguous axial images were obtained through the lumbar spine without the use of intravenous contrast. Sagittal and coronal reformations were then performed. Auto Exposure Controls were utilized during the CT exam to meet ALARA standards for radiation dose reduction. INDICATION: Trauma, tripped on a ball, back pain. COMPARISON STUDY: CT of the abdomen and pelvis from 11/19/2019. FINDINGS: Examination demonstrates an acute appearing compression fracture of L1. There is approximately 30% loss of height. No significant hematoma is present. Mild retropulsion of the superior endplate is present. Surrounding soft tissues appear normal. Diffuse spondylosis is again identified. There is dextroscoliosis. L1-L2 level appears normal. The L2-L3 level demonstrates some facet arthropathy and hypertrophy of the ligamentum flavum. Mild disc bulge is present. Mild central stenosis is present. The L3-L4 level demonstrates facet arthropathy with hypertrophy of the ligamentum flavum. Anterior listhesis is present. There is severe central stenosis. The L4-L5 level demonstrates mild anterior listhesis. Mild disc bulge is present. Facet arthropathy is present. There is moderate central stenosis and some narrowing of the left neural foramina. L5-S1 level demonstrates mild degenerative changes. IMPRESSION: 1. There is an acute L1 compression fracture which would be amenable to kyphoplasty. 2. Multilevel spondylosis is present. Dictated by: Dictated on workstation # [id number]
[2020-12-19] MEDS ORDERED: morphine INJ 10 MG/ML 1ML (SYR OR VIAL) IVP STA ×2 (17:33→19:32)
[2020-12-19] MEDS ORDERED: ONDANSETRON 4 MG/2 ML (SDV) Z0FRAN IVP ONE ×2 (17:45→19:45)
[2020-12-19 19:59] LABS: BASOPHILS % (AUTO) 0 % (0-10); EOSINOPHILS % (AUTO) 0 % (0-10); HEMATOCRIT 34 % (35-52); HEMOGLOBIN 11.7 G/DL (11.5-16.0); LYMPHOCYTES % (AUTO) 8 % (12-44); MEAN CORPUSCULAR HEMOGLOBIN 30 PG (25-34); MEAN CORPUSCULAR HGB CONC 35 G/DL (32-36); MEAN CORPUSCULAR VOLUME 86 FL (80-99); MEAN PLATELET VOLUME 10.5 FL (7.4-10.4); MONOCYTES % (AUTO) 8 % (0-12); NEUTROPHILS % (AUTO) 83 % (42-75); PLATELET COUNT 182 10^3/uL (130-400); WHITE BLOOD COUNT 15.7 10^3/uL (4.3-11.0)
[2020-12-19 20:00] LABS: LYMPHOCYTES # (AUTO) 1.3 X 10^3 (1.0-4.0); MONOCYTES # (AUTO) 1.3 X 10^3 (0.0-1.0)
[2020-12-19 20:15] LABS: BUN/CREATININE RATIO 23; CALCIUM 8.4 MG/DL (8.5-10.1); CARBON DIOXIDE 24 MMOL/L (21-32); CHLORIDE 99 MMOL/L (98-107); CREATININE SERUM 0.69 MG/DL (0.60-1.30); GFR ESTIMATED > 60; GLUCOSE 98 MG/DL (70-105); POTASSIUM 4.1 MMOL/L (3.6-5.0); SODIUM 130 MMOL/L (135-145)
[2020-12-19 20:27] LABS: LYMPHOCYTES % (MANUAL) 5 %; NEUTROPHILS % (MANUAL) 80 %
[2020-12-19 20:28] LABS: MONOCYTES % (MANUAL) 15 %
--- NOTE | 2020-12-19 20:40 | ED Back Pain ---
General Chief Complaint: Back Problems Stated Complaint: BACK PAIN Nursing Triage Note: Patient presents to the ED via EMS with c/o of back pain after a fall. Patient states she was trying to step over a ball when she accidently stepped on the ball causing her backward onto her bottom more on the right side. Since then she has had significant pain. She reports that she just got an epidural last week and had been doing very will with her chronic back pain. Nursing Sepsis Screen: No Definite Risk Source of Information: Patient Exam Limitations: No Limitations History of Present Illness Date Seen by Provider: Dec 19, 2020 Time Seen by Provider: 16:15 Initial Comments Patient is a 75-year-old female who presents with accidental fall from standing in mid to low back pain. Patient states she tripped over a child's toy landing on her buttocks. She denies falling backwards hitting her head. She denies loss of consciousness, headache, neck pain or upper back pain. She denies pain radiating to her extremities. Patient was able to stand and walk with assistance afterwards. She is not currently on anticoagulation therapy. Back pain is rated moderate to severe, described as continuous is worse with position change and movement. Denies extremity weakness or loss of sensation. No loss of bowel or bladder function. No saddle anesthesia. Patient has history of chronic back pain and had epidural steroid injection 3 days ago. States back pain had improved and was doing well prior to follow-up. N Location: Lumbar Spine Timing/Duration: 1-3 Hours Severity: Moderate Pain/Injury Location: Back Radiation: Other Method of Injury: Other Modifying Factors: Improves With Other Associated Symptoms: other Allergies and Home Medications Allergies Coded Allergies: amoxicillin (Verified Allergy, Mild, Diarrhea, 07/06/20) Diarrhea clavulanic acid (Verified Allergy, Mild, Diarrhea, 07/06/20) Diarrhea Home Medications Albuterol Sulfate 1 Puff Puff, 2 PUFF IH Q4H PRN for SHORTNESS OF BREATH, (Reported) 1 PUFF = 90 MCG Ascorbic Acid 500 Mg Capsule.er, 500 MG PO DAILY, (Reported) Carvedilol 25 Mg Tablet, 25 MG PO BID, (Reported) Cholecalciferol (Vitamin D3) 50 Mcg Capsule, 50 MCG PO DAILY, (Reported) Fluticasone/Salmeterol 1 Each Blst.w.dev, 1 EACH IH BID, (Reported) Furosemide 40 Mg Tablet, 40 MG PO PRN, (Reported) Losartan Potassium 100 Mg Tablet, 100 MG PO DAILY, (Reported) Lovastatin 40 Mg Tablet, 40 MG PO HS, (Reported) Magnesium Oxide 250 Mg Tablet, 250 MG PO DAILY, (Reported) Melatonin 10 Mg Capsule, 10 MG PO HS, (Reported) Potassium Chloride 10 Meq Capsule.er, 10 MEQ PO DAILY, (Reported) Tiotropium [place] 1 Inh Aerp, 1 INH IH DAILY, (Reported) Vit A/C/E/Zinc/Selenium/Copper 1 Each Tablet, 1 EACH PO DAILY, (Reported) Zolpidem Tartrate 10 Mg Tablet, 5 MG PO HS PRN for INSOMNIA, (Reported) Patient Home Medication List Home Medication List Reviewed: Yes Review of Systems Constitutional: no symptoms reported EENTM: no symptoms reported Respiratory: no symptoms reported Cardiovascular: no symptoms reported Gastrointestinal: no symptoms reported Genitourinary: no symptoms reported Musculoskeletal: no symptoms reported Skin: no symptoms reported Psychiatric/Neurological: No Symptoms Reported All Other Systems Reviewed Negative Unless Noted: Yes Past Qdvkryr-Tocxui-Qxmmjx Hx Past Med/Social Hx: Reviewed Nursing Past Med/Soc Hx Patient Social History Alcohol Use: Denies Use Smoking Status: Former Smoker Type Used: Cigarettes Former Smoker, Quit: Sep 24, 1994 2nd Hand Smoke Exposure: Yes Recent Infectious Disease Expo: No Recent Hopitalizations: No Immunizations Up To Date Tetanus Booster (TDap): Less than 5yrs Date of Pneumonia Vaccine: Oct 02, 2016 Date of Influenza Vaccine: Jun 28, 2020 Seasonal Allergies Seasonal Allergies: No Past Medical History Surgeries: Yes (Foot surgery, Cornary stents x 3 w/ heart cath) Gallbladder, Hysterectomy, Tonsillectomy Respiratory: Yes COPD Cardiac: Yes (Heart stents X 24 Jan 2017) Coronary Artery Disease, High Cholesterol, Hypertension Neurological: No Sexually Transmitted Disease: No HIV/AIDS: No Genitourinary: No Gastrointestinal: Yes (DYSPHAGIA, HOARSNESS) Musculoskeletal: Yes Arthritis, Chronic Back Pain Endocrine: No HEENT: Yes (GLASSES) Loss of Vision: Denies Hearing Impairment: Denies Cancer: No Psychosocial: No Integumentary: No Blood Disorders: No Adverse Reaction/Blood Tranf: No (N/A) Physical Exam Vital Signs Vital Signs - First Documented 12/19/20 16:12 Temp 36.6 Pulse 56 Resp 16 B/P (MAP) 132/105 (114) Pulse Ox 96 O2 Delivery Room Air Capillary Refill : Less Than 3 Seconds Height, Weight, BMI Height: '" Weight: lbs. oz. kg; 26.89 BMI Method: General Appearance: Moderate Distress (Secondary to pain) HEENT: PERRL/EOMI, TMs Normal, Normal ENT Inspection Neck: Full Range of Motion, Normal Inspection, Non Tender Cardiovascular: No Edema Respiratory: Chest Non Tender, Lungs Clear Gastrointestinal: Non Tender, Soft Back: No CVA Tenderness, Vertebral Tenderness (Upper lumbar right paravertebral back pain. 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 Skin: Normal Color Lymphatic: No Adenopathy Progress/Results/Core Measures Results/Orders Lab Results Laboratory Tests Test 12/19/20 19:55 Range/Units White Blood Count 15.7 H 4.3-11.0 10^3/uL Red Blood Count 3.91 L 4.35-5.85 10^6/uL Hemoglobin 11.7 11.5-16.0 G/DL Hematocrit 34 L 35-52 % Mean Corpuscular Volume 86 80-99 FL Mean Corpuscular Hemoglobin 30 25-34 PG Mean Corpuscular Hemoglobin Concent 35 32-36 G/DL Red Cell Distribution Width 13.1 10.0-14.5 % Platelet Count 182 130-400 10^3/uL Mean Platelet Volume 10.5 H 7.4-10.4 FL Immature Granulocyte % (Auto) 1 % Neutrophils (%) (Auto) 83 H 42-75 % Lymphocytes (%) (Auto) 8 L 12-44 % Monocytes (%) (Auto) 8 0-12 % Eosinophils (%) (Auto) 0 0-10 % Basophils (%) (Auto) 0 0-10 % Neutrophils # (Auto) 13.0 H 1.8-7.8 X 10^3 Lymphocytes # (Auto) 1.3 1.0-4.0 X 10^3 Monocytes # (Auto) 1.3 H 0.0-1.0 X 10^3 Eosinophils # (Auto) 0.0 0.0-0.3 10^3/uL Basophils # (Auto) 0.0 0.0-0.1 10^3/uL Immature Granulocyte # (Auto) 0.1 0.0-0.1 10^3/uL Neutrophils % (Manual) 80 % Lymphocytes % (Manual) 5 % Monocytes % (Manual) 15 % Sodium Level 130 L 135-145 MMOL/L Potassium Level 4.1 3.6-5.0 MMOL/L Chloride Level 99 98-107 MMOL/L Carbon Dioxide Level 24 21-32 MMOL/L Anion Gap 7 5-14 MMOL/L Blood Urea Nitrogen 16 7-18 MG/DL Creatinine 0.69 0.60-1.30 MG/DL Estimat Glomerular Filtration Rate > 60 BUN/Creatinine Ratio 23 Glucose Level 98 70-105 MG/DL Calcium Level 8.4 L 8.5-10.1 MG/DL My Orders Orders - ROSALES ESTEBAN DO Ct Lumbar Spine Wo (12/19/20 16:29) Morphine Injection (Morphine Injection (12/19/20 17:33) Ondansetron Injection (Zofran Injectio (12/19/20 17:45) Drug Screen Stat (Urine) (12/19/20 18:51) Cbc With Automated Diff (12/19/20 19:32) Basic Metabolic Panel (12/19/20 19:32) Morphine Injection (Morphine Injection (12/19/20 19:32) Ondansetron Injection (Zofran Injectio (12/19/20 19:45) Manual Differential (12/19/20 19:55) Fentanyl Inj (Sublimaze Injection) (12/19/20 21:30) Medications Given in ED Current Medications Medications Dose Ordered Sig/Roland Route Start Time Stop Time Status Last Admin Dose Admin Ondansetron HCl 4 mg ONCE ONCE IVP 12/19/20 17:45 12/19/20 17:46 DC 12/19/20 17:43 4 MG Ondansetron HCl 4 mg ONCE ONCE IVP 12/19/20 19:45 12/19/20 19:46 DC 12/19/20 19:46 4 MG Vital Signs/I&O 12/19/20 16:12 Temp 36.6 Pulse 56 Resp 16 B/P (MAP) 132/105 (114) Pulse Ox 96 O2 Delivery Room Air Blood Pressure Mean: 114 Departure Communication (Admissions) CT lumbar spine: L1 compression fracture superior endplate with less than 30% of vertebral height with retropulsion of fragments. Patient with intractable back pain requiring multiple doses of narcotic pain medications. No neurologic deficits. Patient is a poor candidate to go home due to limited pain relief with parenteral narcotics. Family and patient request hospital admission in [facility]. Patient accepted by Dr. Castro at [facility]. Impression Primary Impression: Compression fracture of L1 lumbar vertebra Disposition: [facility] Condition: Stable Departure-Patient Inst. Referrals: NEENA ASHRAF MD (PCP/Family) Primary Care Physician ROSALES ESTEBAN DO Dec 19, 2020 20:39
[2020-12-19 21:25] VITALS: BP 140/59
[2020-12-19] MEDS ORDERED: fentaNYL INJ 100 MCG/2 ML AMP IVP ONE (21:30)
[2020-12-19 21:40] LABS: AMPHETAMINE SCREEN, URINE NEGATIVE (NEGATIVE); BARBITURATE SCREEN URINE NEGATIVE (NEGATIVE); BENZODIAZEPINES SCREEN URINE NEGATIVE (NEGATIVE); CANNABINOID SCREEN, URINE NEGATIVE (NEGATIVE); COCAINE SCREEN URINE NEGATIVE (NEGATIVE); METHADONE STAT NEGATIVE (NEGATIVE); METHAMPHETAMINE SCREEN URINE S NEGATIVE (NEGATIVE); OPIATE SCREEN URINE POSITIVE (NEGATIVE); OXYCODONE STAT NEGATIVE (NEGATIVE); PROPOXYPHENE STAT NEGATIVE (NEGATIVE); TRICYCLIC ANTIDEPRESSANTS SCRE NEGATIVE (NEGATIVE)
== END 2020-12-19 21:46 | disposition short-term general hospital (02) ==
LOC: EDUNIT# 16:09 → ER FS 16:10
DX: S32.010A Wedge compression fracture of first lumbar vertebra, initial encounter for closed fracture (principal); I10 Essential (primary) hypertension; E78.00 Pure hypercholesterolemia, unspecified; J44.9 Chronic obstructive pulmonary disease, unspecified; Z88.1 Allergy status to other antibiotic agents; Z95.5 Presence of coronary angioplasty implant and graft; Z95.9 Presence of cardiac and vascular implant and graft, unspecified; Z87.891 Personal history of nicotine dependence; W01.0XXA Fall on same level from slipping, tripping and stumbling without subsequent striking against object, initial encounter
CPT/HCPCS: 36415; 72131; 80048; 80306; 85007; 85027

== ENCOUNTER → 2021-02-15 | Outpatient (CLI) | payer MEDICARE ==
--- NOTE | 2021-02-15 15:54 | Diagnostic Imaging Report ---
INDICATION: Lumbar compression fracture. COMPARISON: None. FINDINGS: AP Spine L1-L4: [BMD (g/cm2): 1.201] [T-Score: 0.0] [Z-Score: 1.5] [BMD Previous: NA] [BMD % Change: NA] LT Hip Neck: [BMD (g/cm2): 0.930] [T-Score: -0.8] [Z-Score: 1.1] LT Hip Total: [BMD (g/cm2):0.908] [T-Score:-0.8] [Z-Score: 0.9] [BMD Previous: NA] [BMD % Change: NA] RT Hip Neck: [BMD (g/cm2):0.921] [T-Score:-0.8] [Z-Score:1.0] RT Hip Total: [BMD (g/cm2):0.874] [T-score:-1.1] [Z-Score:0.6] [BMD Previous:NA] [BMD % Change:NA] World Health Organization criteria for BMD interpretation classify patients as Normal (T-score at or above -1.0), Osteopenic (T-score between -1.0 and -2.5) or Osteoporotic (T-score at or below -2.5). LIMITATIONS AND MODIFICATION: None. FRACTURE RISK (FRAX SCORE): The ten year probability of (%): Major Osteoporotic Fracture: [15.7] Hip Fracture: [2.3] IMPRESSION: 1. Osteopenia (Low bone mass). 2. Baseline examination. 3. See below National Osteoporosis Foundation guidelines on when to potentially initiate pharmacologic therapy. Based on the National Osteoporosis Foundation Guidelines, pharmacologic treatment should be initiated in any of the following, unless clinical conditions suggest otherwise: * Any patient with prior fragility fracture of the hip or vertebrae. A spine fracture indicates 5X risk for subsequent spine fracture and 2X risk for subsequent hip fracture. * Osteoporosis (T-score <-2.5). * Postmenopausal women and men age 50 and older with low bone mass/osteopenia (T-score between -1.0 and -2.5) by DXA and 10-year major osteoporotic fracture greater than 20% or a 10-year probability of hip fracture greater than 3%. These fracture risks are supplied above in the FRAX score, if applicable. * Clinician judgement and/or patient preferences may indicate treatment for people with 10-year fracture probabilities above or below these levels. Dictated by: Dictated on workstation # [id number]
--- NOTE | 2021-02-15 16:17 | Diagnostic Imaging Report ---
INDICATION: Fall. Back pain. COMPARISON: 12/19/2020 CT scan lumbar spine. FINDINGS: The known compression fracture of the superior endplate of L1 noted on the previous CT scan now shows progressive collapse with a planar type appearance now. There is moderate dextroscoliosis with degenerative disc disease again noted centered at L3-L4. No new compression fractures are demonstrated. Grade 1 anterolisthesis of L4 on L5 remains present. Aorta remains densely calcified without evidence of aneurysm. IMPRESSION: 1. Moderate degenerative disc disease with dextroscoliosis. 2. Progressive collapse of L1 vertebral body with a planar type appearance now. Dictated by: Dictated on workstation # [id number]
== END ==
LOC: RAD 11:18
PROVIDERS: ATTEND Physician Assistant
DX: S32.000A Wedge compression fracture of unspecified lumbar vertebra, initial encounter for closed fracture (principal); W19.XXXA Unspecified fall, initial encounter; M47.816 Spondylosis without myelopathy or radiculopathy, lumbar region; M41.86 Other forms of scoliosis, lumbar region
CPT/HCPCS: 72100; 77080

== ENCOUNTER → 2021-12-14 | Outpatient (CLI) | payer MEDICARE ==
[~2021-12-14] MED LIST changes: +CIPR250T3 PO; +RT-ALBUTEROL SULF 2.5 MG/3 ML PRE-MIX VIAL INH ONE
--- NOTE | 2021-12-14 14:29 | Diagnostic Imaging Report ---
EXAMINATION: CT chest without contrast. TECHNIQUE: Multiple contiguous axial images were obtained through the chest without the use of intravenous contrast. All CT scans use one or more of the following dose optimizing techniques: Automated exposure control, MA and/or KvP adjustment based on patient size and exam type or iterative reconstruction. HISTORY: History of COPD. No acute complaints. COMPARISON: Chest radiograph on 09/26/2019. CT lumbar spine on 12/19/2020. FINDINGS: The heart size is within normal limits. No pericardial effusion is present. There is calcified aortic and coronary atherosclerotic plaque without evidence of aneurysm. Mildly prominent mediastinal lymph nodes are visualized. No pathologically enlarged lymphadenopathy in the chest. Centrilobular emphysema is seen throughout the lungs, greatest in the apices. The lungs demonstrate no pulmonary nodules or masses. There are no focal areas of consolidation. Biapical scarring is present. No central endobronchial obstructing lesions are identified. There is no pleural effusion or pneumothorax. Chronic height loss is again seen in the L1 vertebral body with progression of height loss since the exam from 2020 and increased bony retropulsion. The height loss now is approximately 90% with bony retropulsion of 0.9 cm. This is causing at least moderate spinal canal stenosis at the L1 level. Limited views of the upper abdominal structures demonstrate no acute abnormalities. Hypoattenuating focus is seen in the right hepatic lobe measuring 1.4 cm. The gallbladder is surgically absent. Both adrenal glands are unremarkable. IMPRESSION: 1. Centrilobular emphysema with biapical scarring. Findings are consistent with the patient's history of COPD. 2. No suspicious pulmonary nodules or focal consolidations. No pleural effusions. 3. Interval increase in height loss involving the chronic two-column fracture in the L1 vertebral body, now representing 90% height loss. There has also been interval bony retropulsion of 0.9 cm resulting in at least moderate spinal canal stenosis at the L1 level. Dictated by: Dictated on workstation # [id number]
== END ==
LOC: RT 10:45
PROVIDERS: ATTEND Internal Medicine Critical Care Medicine
DX: J43.2 Centrilobular emphysema (principal); J98.4 Other disorders of lung; M51.36 Other intervertebral disc degeneration, lumbar region; M48.56XA Collapsed vertebra, not elsewhere classified, lumbar region, initial encounter for fracture
CPT/HCPCS: 71250; 94060; 94726; 94729

== ENCOUNTER 2021-12-16 19:21 | Emergency (ER) | payer MEDICARE ==
[~2021-12-16 19:21] MED LIST changes: -CIPR250T3 PO; -RT-ALBUTEROL SULF 2.5 MG/3 ML PRE-MIX VIAL INH ONE
--- NOTE | 2021-12-16 19:46 | ED General ---
General Chief Complaint: Cardiac/General Problems Stated Complaint: DIZZY,LOW BLOOD PRESSURE Source of Information: Patient, Family Exam Limitations: No Limitations History of Present Illness Date Seen by Provider: Dec 16, 2021 Time Seen by Provider: 19:23 Initial Comments 76-year-old female presenting with complaints of feeling dizzy and lightheaded in waves around 4 PM. She states that she was trying to get an appetizer ready to go to [employer] basketball game. She had to sit down because she was feeling so dizzy and lightheaded. She said that it did pass after about 10 to 15 minutes. She has had similar issues in the past with low blood pressure. She had taken a oxycodone/acetaminophen pain pill for hip pain around 3 PM. She also had for the first time taken a third dose of gabapentin 100 mg last night at bedtime. That it made her really sleepy and she had been feeling very tired and "dragging" all day. She states that she is feeling back to normal now on ar [facility] to the ED but had just wanted to be checked out to make sure there was not something more going on. She also has been having increased swelling in her legs and lower extremities for the last few weeks. She was seen in the clinic yesterday and had blood work done through [facility] but is unsure of those results as no one had called her today. She does have results of a CT scan of her chest and abdomen from Sunday, December 14 which did not show any evidence of heart failure or pleural effusions. She does have chronic COPD changes as well as a chronic L1 compression fracture. Modifying Factors: worse with Movement (activity was making dizziness worse at 1600); improves with Rest (resting made her symptoms resolve) Associated Systoms: No Chest Pain, No Cough, No Diaphoresis, No Fever/Chills, No Headaches, No Loss of Appetite, No Malaise, No Nausea/Vomiting, No Rash, No Seizure; Shortness of Air (chronic from COPD); No Syncope, No Weakness Allergies and Home Medications Allergies Coded Allergies: amoxicillin (Verified Allergy, Mild, Diarrhea, 07/06/20) Diarrhea clavulanic acid (Verified Allergy, Mild, Diarrhea, 07/06/20) Diarrhea Patient Home Medication List Home Medication List Reviewed: Yes Albuterol Sulfate (Proair Hfa) 1 Puff Puff, 2 PUFF IH Q4H PRN for SHORTNESS OF BREATH, (Reported) Entered as Reported by: RAVINDER DAVIDSON on 07/06/201521 Ascorbic Acid (Vitamin C) 500 Mg Capsule.er, 500 MG PO DAILY, (Reported) Entered as Reported by: RAVINDER DAVIDSON on 07/06/201521 Carvedilol (Carvedilol) 25 Mg Tablet, 25 MG PO BID, (Reported) Entered as Reported by: RAVINDER DAVIDSON on 07/06/201521 Cholecalciferol (Vitamin D3) (Vitamin D3) 50 Mcg Capsule, 50 MCG PO DAILY, (Reported) Entered as Reported by: RAVINDER DAVIDSON on 07/06/201521 Ciprofloxacin HCl (Ciprofloxacin HCl) 250 Mg Tablet, 250 MG PO BID Prescribed by: LOI RODRIGUEZ on 12/16/212053 Fluticasone/Salmeterol (Advair 100-50 Diskus) 1 Each Blst.w.dev, 1 EACH IH BID, (Reported) Entered as Reported by: RAVINDER DAVIDSON on 07/06/201521 Furosemide (Lasix) 40 Mg Tablet, 40 MG PO PRN, (Reported) Entered as Reported by: RAVINDER DAVIDSON on 07/06/201521 Losartan Potassium (Losartan Potassium) 100 Mg Tablet, 100 MG PO DAILY, (Reported) Entered as Reported by: RAVINDER DAVIDSON on 07/06/201521 Lovastatin (Lovastatin) 40 Mg Tablet, 40 MG PO HS, (Reported) Entered as Reported by: RAVINDER DAVIDSON on 07/06/201521 Magnesium Oxide (Magnesium) 250 Mg Tablet, 250 MG PO DAILY, (Reported) Entered as Reported by: RAVINDER DAVIDSON on 07/06/201521 Melatonin (Melatonin) 10 Mg Capsule, 10 MG PO HS, (Reported) Entered as Reported by: RAVINDER DAVIDSON on 07/06/201521 Potassium Chloride (Potassium Chloride) 10 Meq Capsule.er, 10 MEQ PO DAILY, (Reported) Entered as Reported by: RAVINDER DAVIDSON on 07/06/201521 Tiotropium [place] (Spiriva) 1 Inh Aerp, 1 INH IH DAILY, (Reported) Entered as Reported by: RAVINDER DAVIDSON on 07/06/201521 Vit A/C/E/Zinc/Selenium/Copper (Vision Formula Tablet) 1 Each Tablet, 1 EACH PO DAILY, (Reported) Entered as Reported by: RAVINDER DAVIDSON on 07/06/201521 Zolpidem Tartrate (Ambien) 10 Mg Tablet, 5 MG PO HS PRN for INSOMNIA, (Reported) Entered as Reported by: RAVINDER DAVIDSON on 07/06/201521 Review of Systems Review of Systems Constitutional: No chills, No diaphoresis; dizziness; No fever EENTM: no symptoms reported Respiratory: see HPI Cardiovascular: No chest pain; edema (BLE swelling over the last few weeks) Gastrointestinal: no symptoms reported Genitourinary: no symptoms reported Musculoskeletal: back pain (chronic back pain from L1 compression fracture) Skin: No rash Psychiatric/Neurological: Denies Headache, Denies Seizure Hematologic/Lymphatic: Denies Blood Clots Past Ctsvkjv-Kpweii-Ymdzvb Hx Patient Social History Tobacco Use?: No Substance use?: No Alcohol Use?: No Immunizations Up To Date Tetanus Booster (TDap): Less than 5yrs Seasonal Allergies Seasonal Allergies: No Past Medical History Surgery/Hospitalization HX: COPD, HTN, L1 compression fracture, Cholecystectomy, Hysterectomy, Hypercholesterolemia, CAD Surgeries: Yes (Foot surgery, Cornary stents x 3 w/ heart cath) Gallbladder, Hysterectomy, Tonsillectomy Respiratory: Yes COPD Cardiac: Yes (Heart stents X 24 Jan 2017) Coronary Artery Disease, High Cholesterol, Hypertension Neurological: No Sexually Transmitted Disease: No HIV/AIDS: No Genitourinary: No Gastrointestinal: Yes (DYSPHAGIA, HOARSNESS) Musculoskeletal: Yes Arthritis, Chronic Back Pain Endocrine: No HEENT: Yes (GLASSES) Loss of Vision: Denies Hearing Impairment: Denies Cancer: No Psychosocial: No Integumentary: No Blood Disorders: No Adverse Reaction/Blood Tranf: No (N/A) Physical Exam Vital Signs Vital Signs - First Documented 12/16/21 19:27 Pulse 66 Resp 18 B/P (MAP) 154/62 (92) Pulse Ox 99 O2 Delivery Room Air Capillary Refill : Height, Weight, BMI Height: '" Weight: lbs. oz. kg; 26.89 BMI Method: General Appearance: No Apparent Distress, WD/WN HEENT: PERRL/EOMI, Pharynx Normal Neck: Full Range of Motion, Normal Inspection, Non Tender, Supple Respiratory: Chest Non Tender, Lungs Clear, Normal Breath Sounds, No Accessory Muscle Use, No Respiratory Distress Cardiovascular: Regular Rate, Rhythm, Normal Peripheral Pulses Gastrointestinal: Normal Bowel Sounds, No Pulsatile Mass, Non Tender Rectal: Deferred Extremity: Normal Capillary Refill, Normal Range of Motion, No Calf Tenderness, Pedal Edema (2+ BLE edema with compression stockings in place) Neurologic/Psychiatric: Alert, Oriented x3, Normal Mood/Affect, big data lead II-XII Norm as Tested Skin: Normal Color, Warm/Dry Progress/Results/Core Measures Suspected Sepsis SIRS Temperature: Pulse: Respiratory Rate: Laboratory Tests 12/16/21 19:42: White Blood Count 9.3 Blood Pressure / Mean: Laboratory Tests 12/16/21 19:42: Creatinine 1.18, INR Comment 0.9, Platelet Count 226, Total Bilirubin 0.4 Results/Orders Lab Results Laboratory Tests Test 12/16/21 19:42 12/16/21 20:27 Range/Units White Blood Count 9.3 4.3-11.0 10^3/uL Red Blood Count 4.04 3.80-5.11 10^6/uL Hemoglobin 12.5 11.5-16.0 g/dL Hematocrit 36 35-52 % Mean Corpuscular Volume 89 80-99 fL Mean Corpuscular Hemoglobin 31 25-34 pg Mean Corpuscular Hemoglobin Concent 35 32-36 g/dL Red Cell Distribution Width 12.9 10.0-14.5 % Platelet Count 226 130-400 10^3/uL Mean Platelet Volume 9.6 9.0-12.2 fL Immature Granulocyte % (Auto) 0 % Neutrophils (%) (Auto) 68 42-75 % Lymphocytes (%) (Auto) 21 12-44 % Monocytes (%) (Auto) 9 0-12 % Eosinophils (%) (Auto) 2 0-10 % Basophils (%) (Auto) 0 0-10 % Neutrophils # (Auto) 6.4 1.8-7.8 10^3/uL Lymphocytes # (Auto) 2.0 1.0-4.0 10^3/uL Monocytes # (Auto) 0.8 0.0-1.0 10^3/uL Eosinophils # (Auto) 0.2 0.0-0.3 10^3/uL Basophils # (Auto) 0.0 0.0-0.1 10^3/uL Immature Granulocyte # (Auto) 0.0 0.0-0.1 10^3/uL Prothrombin Time 12.9 12.2-14.7 SEC INR Comment 0.9 0.8-1.4 Activated Partial Thromboplast Time 27 24-35 SEC Sodium Level 130 L 135-145 MMOL/L Potassium Level 3.5 L 3.6-5.0 MMOL/L Chloride Level 88 L 98-107 MMOL/L Carbon Dioxide Level 29 21-32 MMOL/L Anion Gap 13 5-14 MMOL/L Blood Urea Nitrogen 22 H 7-18 MG/DL Creatinine 1.18 0.60-1.30 MG/DL Estimat Glomerular Filtration Rate 47 BUN/Creatinine Ratio 19 Glucose Level 104 70-105 MG/DL Calcium Level 9.2 8.5-10.1 MG/DL Corrected Calcium 9.4 8.5-10.1 MG/DL Magnesium Level 1.9 1.6-2.4 MG/DL Total Bilirubin 0.4 0.1-1.0 MG/DL Aspartate Amino Transf (AST/SGOT) 29 5-34 U/L Alanine Aminotransferase (ALT/SGPT) 31 0-55 U/L Alkaline Phosphatase 91 40-136 U/L Troponin I < 0.30 <0.30 NG/ML Pro-B-Type Natriuretic Peptide 281.6 H <75.0 PG/ML Total Protein 6.1 L 6.4-8.2 GM/DL Albumin 3.8 3.2-4.5 GM/DL Urine Color YELLOW Urine Clarity CLEAR Urine pH 7.0 5-9 Urine Specific Longs 1.015 L 1.016-1.022 Urine Protein NEGATIVE NEGATIVE Urine Glucose (UA) NEGATIVE NEGATIVE Urine Ketones NEGATIVE NEGATIVE Urine Nitrite NEGATIVE NEGATIVE Urine Bilirubin NEGATIVE NEGATIVE Urine Urobilinogen 0.2 < = 1.0 MG/DL Urine Leukocyte Esterase TRACE H NEGATIVE Urine RBC (Auto) NEGATIVE NEGATIVE Urine RBC NONE /HPF Urine WBC 5-10 H /HPF Urine Crystals NONE /LPF Urine Bacteria TRACE /HPF Urine Casts PRESENT /LPF Urine Hyaline Casts 10-25 H /LPF Urine Mucus NEGATIVE /LPF Urine Culture Indicated YES My Orders Orders - LOI RODRIGUEZ MD Cbc With Automated Diff (12/16/21 19:44) Magnesium (12/16/21 19:44) Ekg Tracing (12/16/21:44) Comprehensive Metabolic Panel (12/16/21:44) Protime With Inr (12/16/21:44) Partial Thromboplastin Time (12/16/21 19:44) O2 (12/16/21 19:44) Monitor-Rhythm Ecg Trace Only (12/16/21:44) Ed Iv/Invasive Line Start (12/16/21:44) Troponin I Fs (12/16/21 19:44) Probnp Fs (12/16/21 19:44) Ua Culture If Indicated (12/16/21:) Urine Culture (12/16/21:) Vital Signs/I&O 12/16/21 12/16/21:27 20:52 Pulse 66 60 Resp 18 18 B/P (MAP) 154/62 (92) 153/58 Pulse Ox 99 98 O2 Delivery Room Air Room Air Capillary Refill : Progress Note #1: Progress Note Obtain basic labs and electrocardiogram as well as urinalysis to look for possible electrolyte imbalance, cardiac disease, acute coronary syndrome, myocardial infarction, UTI, dehydration, renal failure, hepatic failure as potential source of her symptoms. Advised it may just be related to her taking the Gabapentin extra dose last night and then taking a Oxycodone/Apap pain pill at 1500. Progress Note #2: Time: 20:28 Progress Note No acute significant abnormality on the electrocardiogram. Her blood work appeared stable with some chronic hyponatremia at 130. Her BUN was slightly elevated to 22 so she might be slightly dry. Her troponin was less than 0.3. She had no acute significant abnormality to account for her symptoms. She just provided a urine sample after drinking some water here in the ED. She urinated just prior to coming to the ED so that she would have an empty bladder while traveling in the car, thus it took a little while to be able to obtain urine for UA. Progress Note #3: Progress Note UA has trace LE and bacteria with WBC. Pt denies UTI symptoms. will defer tr eatment until she has symptoms but will send antibiotic script to pharmacy in case she has symptoms develop over weekend. Otherwise if culture shows she needs abx will call her to let her know. Her low blood pressure at home and dizziness earlier was likely a combo of Gabapentin and Oxycodone. Advised to hold off on taking 3rd dose of Gabapentin for another week and check with providers about continued concerns. Return if having more problems ECG Initial ECG Impression Date: Dec 16, 2021 Initial ECG Impression Time: 19:33 Initial ECG Rate: 63 Initial ECG Rhythm: Normal Sinus Initial ECG Comparisson: Unchanged Comment Normal sinus rhythm with a heart rate of 63 bpm. IN interval [address] elevation. QT interval 428 ms with a QTc interval 439 ms. Overall appears similar to prior tracings in the system. Departure Impression Primary Impression: Dizziness Additional Impressions: Medication side effect Bacteriuria Disposition: HOME, SELF-CARE Condition: Stable Departure-Patient Inst. Decision time for Depature: 20:53 Referrals: NEENA ASHRAF MD (PCP/Family) Primary Care Physician Patient Instructions: Dizziness, Adult ED, Adverse Drug Reactions, Adult ED Add. Discharge Instructions: Make sure you are drinking plenty of fluids and staying well hydrated. Hold off on taking the 3rd dose of Gabapentin for now. You might want to wait another week or so to give your body a chance to adjust to the medicine more before increasing the dose. Your urine had some bacteria and trace amount of white blood cells present in it. If this is the start of a UTI then you may start having more symptoms over the weekend and if so you could grape picker the prescription from the pharmacy. Otherwise, a culture is being run on the urine and if it shows you need a specific antibiotic then you will get a call early next week about that. Check back with your regular providers for continued concerns All discharge instructions reviewed with patient and/or family. Voiced understanding. Scripts Ciprofloxacin HCl (Ciprofloxacin HCl) 250 Mg Tablet 250 MG PO BID for uti for 3 Days, #6 TAB 0 Refills Prov: LOI RODRIGUEZ MD 12/16/21 LOI RODRIGUEZ MD Dec 16, 2021 19:46
[2021-12-16 19:48] LABS: BASOPHILS % (AUTO) 0 % (0-10); EOSINOPHILS # (AUTO) 0.2 10^3/uL (0.0-0.3); EOSINOPHILS % (AUTO) 2 % (0-10); HEMATOCRIT 36 % (35-52); HEMOGLOBIN 12.5 g/dL (11.5-16.0); LYMPHOCYTES % (AUTO) 21 % (12-44); MEAN CORPUSCULAR HEMOGLOBIN 31 pg (25-34); MEAN CORPUSCULAR HGB CONC 35 g/dL (32-36); MEAN CORPUSCULAR VOLUME 89 fL (80-99); MEAN PLATELET VOLUME 9.6 fL (9.0-12.2); MONOCYTES # (AUTO) 0.8 10^3/uL (0.0-1.0); MONOCYTES % (AUTO) 9 % (0-12); NEUTROPHILS # (AUTO) 6.4 10^3/uL (1.8-7.8); NEUTROPHILS % (AUTO) 68 % (42-75); PLATELET COUNT 226 10^3/uL (130-400); WHITE BLOOD COUNT 9.3 10^3/uL (4.3-11.0)
[2021-12-16 19:53] LABS: INR 0.9 (0.8-1.4); PROTHROMBIN TIME PATIENT 12.9 SEC (12.2-14.7)
[2021-12-16 20:08] LABS: ALBUMIN 3.8 GM/DL (3.2-4.5); BILIRUBIN,TOTAL 0.4 MG/DL (0.1-1.0); CALCIUM 9.2 MG/DL (8.5-10.1); CREATININE SERUM 1.18 MG/DL (0.60-1.30); MAGNESIUM 1.9 MG/DL (1.6-2.4); POTASSIUM 3.5 MMOL/L (3.6-5.0); TOTAL PROTEIN 6.1 GM/DL (6.4-8.2)
[2021-12-16 20:30] LABS: BILIRUBIN,URINE NEGATIVE (NEGATIVE); CLARITY,URINE CLEAR; COLOR,URINE YELLOW; GLUCOSE, URINE (UA) NEGATIVE (NEGATIVE); KETONES,URINE NEGATIVE (NEGATIVE); LEUKOCYTE ESTERASE ,URINE TRACE (NEGATIVE); NITRITE,URINE NEGATIVE (NEGATIVE); PROTEIN,URINE NEGATIVE (NEGATIVE)
[2021-12-16 20:33] LABS: BACTERIA,URINE TRACE /HPF
[2021-12-16 20:52] VITALS: BP 153/58
[2021-12-16] MEDS ORDERED: CIPR250T3 PO (20:54)
== END 2021-12-16 20:57 | disposition home or self-care (01) ==
LOC: EDUNIT# 19:21 → ER FS 19:22
DX: R42 Dizziness and giddiness (principal); T42.6X5A Adverse effect of other antiepileptic and sedative-hypnotic drugs, initial encounter; R82.71 Bacteriuria; E87.1 Hypo-osmolality and hyponatremia
CPT/HCPCS: 36415; 80053; 81000; 83735; 83880; 84484; 85025; 85610; 85730; 87088; 93005; 93041

== ENCOUNTER 2022-02-21 17:12 | Emergency (ER) | payer MEDICARE ==
[~2022-02-21] VITALS: Ht 152 cm; Wt 74.0 kg
[~2022-02-21 17:12] MED LIST changes: +CIPR250T3 PO
[2022-02-21 17:37] VITALS: BP 188/133
--- NOTE | 2022-02-21 17:55 | ED Integumentary General ---
General Chief Complaint: Skin/Wound Problems Stated Complaint: R LOWER LEG WOUND Nursing Triage Note: Patient has presented to ER with cc of needing a wound on her lower right leg checked. Patient reports that about 15 days ago she dropped a peice of glass into her leg - she had sutures and on this past Sunday she had the sutures removed. The past 2 days the wound seems to be looking worse. She is taking antibiotics and using triple antibiotic ointment and a dressing. Source: patient History of Present Illness Date Seen by Provider: February 21, 2022 Time Seen by Provider: 17:15 Initial Comments 76-year-old female presenting with complaints of wound on her right leg. She had a glass tabletop fall and cut into her right leg about 2 weeks ago. At that time it caused a flap laceration and she had gone through urgent care for stitches. She was on Keflex for the first week and then she had gone and and had the stitches removed this last Sunday, 2 days ago, and was started on clindamycin. There was some increased redness around the wound and there is bruising and dark-colored skin over the wound. She denies having any increased pain or having any pus draining from the wound. There is no redness streaking up her leg. She also has been having increased swelling to both of her legs for the last few months and is going to cardiology tomorrow to get an echocardiogram and further evaluation of this. However today she had been playing [employer] and had her legs down for over 3 hours. She had increased swelling due to this and was concerned about the wound looking almost black in the center area of the flap where the bruised skin is located. She was worried that there may be infection or something worse going on with the wound and that it was not healing well especially since she also was having some clear to yellow watery drainage coming from underneath the skin. Severity: mild Location: extremities (Right lower extremity) Associated Symptoms: edema; No fever, No flushing, No headache, No hives, No jaundice, No malaise, No nasal congestion, No numbness, No pallor, No paresthesia, No petechiae, No rash, No sore throat, No tingling Allergies and Home Medications Allergies Coded Allergies: amoxicillin (Verified Allergy, Mild, Diarrhea, 07/06/20) Diarrhea clavulanic acid (Verified Allergy, Mild, Diarrhea, 07/06/20) Diarrhea Patient Home Medication List Home Medication List Reviewed: Yes Albuterol Sulfate (Proair Hfa) 1 Puff Puff, 2 PUFF IH Q4H PRN for SHORTNESS OF BREATH, (Reported) Entered as Reported by: RAVINDER DAVIDSON on 07/06/201521 Ascorbic Acid (Vitamin C) 500 Mg Capsule.er, 500 MG PO DAILY, (Reported) Entered as Reported by: RAVINDER DAVIDSON on 07/06/201521 Carvedilol (Carvedilol) 25 Mg Tablet, 25 MG PO BID, (Reported) Entered as Reported by: RAVINDER DAVIDSON on 07/06/201521 Cholecalciferol (Vitamin D3) (Vitamin D3) 50 Mcg Capsule, 50 MCG PO DAILY, (Reported) Entered as Reported by: RAVINDER DAVIDSON on 07/06/201521 Ciprofloxacin HCl (Ciprofloxacin HCl) 250 Mg Tablet, 250 MG PO BID Prescribed by: LOI RODRIGUEZ on 12/16/212053 Fluticasone/Salmeterol (Advair 100-50 Diskus) 1 Each Blst.w.dev, 1 EACH IH BID, (Reported) Entered as Reported by: RAVINDER DAVIDSON on 07/06/201521 Furosemide (Lasix) 40 Mg Tablet, 40 MG PO PRN, (Reported) Entered as Reported by: RAVINDER DAVIDSON on 07/06/201521 Losartan Potassium (Losartan Potassium) 100 Mg Tablet, 100 MG PO DAILY, (Reported) Entered as Reported by: RAVINDER DAVIDSON on 07/06/201521 Lovastatin (Lovastatin) 40 Mg Tablet, 40 MG PO HS, (Reported) Entered as Reported by: RAVINDER DAVIDSON on 07/06/201521 Magnesium Oxide (Magnesium) 250 Mg Tablet, 250 MG PO DAILY, (Reported) Entered as Reported by: RAVINDER DAVIDSON on 07/06/201521 Melatonin (Melatonin) 10 Mg Capsule, 10 MG PO HS, (Reported) Entered as Reported by: RAVINDER DAVIDSON on 07/06/201521 Potassium Chloride (Potassium Chloride) 10 Meq Capsule.er, 10 MEQ PO DAILY, (Reported) Entered as Reported by: RAVINDER DAVIDSON on 07/06/201521 Tiotropium [place] (Spiriva) 1 Inh Aerp, 1 INH IH DAILY, (Reported) Entered as Reported by: RAVINDER DAVIDSON on 07/06/201521 Vit A/C/E/Zinc/Selenium/Copper (Vision Formula Tablet) 1 Each Tablet, 1 EACH PO DAILY, (Reported) Entered as Reported by: RAVINDER DAVIDSON on 07/06/201521 Zolpidem Tartrate (Ambien) 10 Mg Tablet, 5 MG PO HS PRN for INSOMNIA, (Reported) Entered as Reported by: RAVINDER DAVIDSON on 07/06/201521 Review of Systems Review of Systems Constitutional: No chills, No fever EENTM: no symptoms reported Respiratory: no symptoms reported Cardiovascular: no symptoms reported Gastrointestinal: no symptoms reported Genitourinary: no symptoms reported Musculoskeletal: no symptoms reported Skin: see HPI Psychiatric/Neurological: No Symptoms Reported Past Tcvmuhw-Kdwrkz-Zughls Hx Patient Social History Tobacco Use?: No Use of E-Cig and/or Vaping dev: No Substance use?: No Alcohol Use?: No Pt feels they are or have been: Unable to obtain Immunizations Up To Date Tetanus Booster (TDap): Less than 5yrs Seasonal Allergies Seasonal Allergies: No Past Medical History Surgery/Hospitalization HX: COPD, HTN, L1 compression fracture, Cholecystectomy, Hysterectomy, Hypercholesterolemia, CAD Surgeries: Yes (Foot surgery, Cornary stents x 3 w/ heart cath) Gallbladder, Hysterectomy, Tonsillectomy Respiratory: Yes COPD Cardiac: Yes (Heart stents X 24 Jan 2017) Coronary Artery Disease, High Cholesterol, Hypertension Neurological: No Sexually Transmitted Disease: No HIV/AIDS: No Genitourinary: No Gastrointestinal: Yes (DYSPHAGIA, HOARSNESS) Musculoskeletal: Yes Arthritis, Chronic Back Pain Endocrine: No HEENT: Yes (GLASSES) Loss of Vision: Denies Hearing Impairment: Denies Cancer: No Psychosocial: No Integumentary: No Blood Disorders: No Adverse Reaction/Blood Tranf: No (N/A) Physical Exam Vital Signs Vital Signs - First Documented 02/21/22 17:37 Temp 36.7 Pulse 83 Resp 20 B/P (MAP) 188/133 (151) Pulse Ox 99 Capillary Refill : General Appearance: WD/WN, no apparent distress Cardiovascular: normal peripheral pulses Extremities: normal range of motion, non-tender, no calf tenderness, normal capillary refill, other (1+ pitting edema bilateral lower extremities) Neurologic/Psychiatric: body maker machine 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 There is also irritation to the skin from where tape had been adhered) Skin Problem Location: lower extremities (Right peñaloza) Skin Problem Character: drainage (Clear serous drainage), erythema (Mild erythema to the inferior aspect of the wound consistent with venous stasis and swelling), other (She has no increased warmth, induration, tenderness to palpation, purulent drainage, fluctuance) Progress/Results/Core Measures Results/Orders Vital Signs/I&O 02/21/22 17:37 Temp 36.7 Pulse 83 Resp 20 B/P (MAP) 188/133 (151) Pulse Ox 99 Blood Pressure Mean: 151 Progress Progress Note : Progress Note Reassured patient that there is no obvious sign on physical exam of definite infection. She could continue taking the clindamycin and treating topically as needed. Offered to do blood work to look for potential systemic signs of infection but locally on physical exam she did not have any signs of infection at the wound. There was no fluctuance, increased warmth, induration, purulent drainage, redness streaking up her leg. Given information about wound care clinic in [place] so she wanted another opinion she could give them a call. Counseled that it would take a long time for the wound to completely heal and once the skin and bruise skin sloughed off it would look better. I would not recommend trying to remove that skin right now as it would just leave an open raw area which would increase her risk of infection Departure Impression Primary Impression: Wound of right lower extremity Qualified Codes: S81.801A - Unspecified open wound, right lower leg, initial encounter Additional Impression: Bilateral lower extremity edema Disposition: 01 HOME, SELF-CARE Condition: Stable Departure-Patient Inst. Decision time for Depature: 17:53 Referrals: NEENA ASHRAF MD (PCP/Family) Primary Care Physician Patient Instructions: Wound Care ED Add. Discharge Instructions: Keep the wound covered when you are in bed or if would like it dirty otherwise you could keep it open to air. If still not improving or you wanted an additional opinion you could check with the wound care clinic by calling the number on the brochure. Check back with Dr. Ashraf or clinic if having continued concerns. If you develop fever over 101 F, pus draining from wound on leg, redness streaking up your leg then be seen sooner. All discharge instructions reviewed with patient and/or family. Voiced un derstanding. LOI RODRIGUEZ MD February 21, 2022 17:55
== END 2022-02-21 18:05 | disposition home or self-care (01) ==
LOC: EDUNIT# 17:12 → ER FS 17:13
DX: S81.801A Unspecified open wound, right lower leg, initial encounter (principal); R60.0 Localized edema; Z88.1 Allergy status to other antibiotic agents; W25.XXXA Contact with sharp glass, initial encounter
CPT/HCPCS: 99282

== ENCOUNTER → 2022-03-08 | Outpatient (CLI) | payer MEDICARE ==
--- NOTE | 2022-03-08 16:23 | Diagnostic Imaging Report ---
HISTORY: Chronic ulcer of the right calf. COMPARISON: None TECHNIQUE: Ankle brachial indices were obtained of the bilateral lower extremities FINDINGS/ IMPRESSION: The right ankle-brachial index measures 1.11, which is normal. The left measures 1.46, borderline between normal and vessel calcification. Dictated by: Dictated on workstation # [id number]
== END ==
LOC: RAD 10:45
PROVIDERS: ATTEND Surgery
DX: L97.212 Non-pressure chronic ulcer of right calf with fat layer exposed (principal)
CPT/HCPCS: 93923

== ENCOUNTER → 2022-03-21 | Outpatient (CLI) | payer MEDICARE ==
[~2022-03-21] MED LIST changes: +CATHETER FLUSH 10 ML SYR IVP PRN
--- NOTE | 2022-03-21 13:21 | Diagnostic Imaging Report ---
INDICATION: Shortness of breath. COPD. COMPARISON: CT scan from 12/14/2021. TECHNIQUE: A perfusion study only was performed. 5.4 mCi of technetium 99M MAA was given IV. FINDINGS: Four views show a slightly mottled distribution bilaterally though no segmental or subsegmental defects are seen. IMPRESSION: The mild heterogeneous appearance of uptake is most likely secondary to COPD. Unfortunately, this cannot be classified as low probability, especially without a ventilation study. This would be in the indeterminate to moderate category. This does not qualify as high probability. Dictated by: Dictated on workstation # [id number]
== END ==
LOC: CARD 09:00
PROVIDERS: ATTEND Internal Medicine Critical Care Medicine
DX: J44.9 Chronic obstructive pulmonary disease, unspecified (principal); I27.20 Pulmonary hypertension, unspecified
CPT/HCPCS: 78580; A9540

== ENCOUNTER → 2022-04-28 | Outpatient (CLI) | payer MEDICARE ==
[~2022-04-28] MED LIST changes: -CATHETER FLUSH 10 ML SYR IVP PRN
[2022-04-28 12:44] LABS: ABG OXYGEN SATURATION 97 % (94-100); ABG PCO2 37 MMHG (35-45); ABG PH 7.38 (7.37-7.43); ABG PO2 79 MMHG (79-93); ABG TCO2 22.8 MMOL/L (21.0-31.0); ALLENS TEST YES-POS; INSPIRED O2 RA; VENTILATOR NO
== END ==
LOC: LAB 11:26
PROVIDERS: ATTEND Internal Medicine Critical Care Medicine
DX: I27.20 Pulmonary hypertension, unspecified (principal); J44.9 Chronic obstructive pulmonary disease, unspecified
CPT/HCPCS: 36600; 82805

== ENCOUNTER 2022-06-03 20:35 | Observation (INO) | payer MEDICARE ==
[2022-06-03 20:48] LABS: BASOPHILS % (AUTO) 1 % (0-10); EOSINOPHILS # (AUTO) 0.1 10^3/uL (0.0-0.3); EOSINOPHILS % (AUTO) 1 % (0-10); HEMATOCRIT 31 % (35-52); HEMOGLOBIN 10.7 g/dL (11.5-16.0); LYMPHOCYTES # (AUTO) 2.1 10^3/uL (1.0-4.0); LYMPHOCYTES % (AUTO) 27 % (12-44); MEAN CORPUSCULAR HEMOGLOBIN 28 pg (25-34); MEAN CORPUSCULAR HGB CONC 35 g/dL (32-36); MEAN CORPUSCULAR VOLUME 81 fL (80-99); MEAN PLATELET VOLUME 9.4 fL (9.0-12.2); MONOCYTES # (AUTO) 0.7 10^3/uL (0.0-1.0); MONOCYTES % (AUTO) 10 % (0-12); NEUTROPHILS # (AUTO) 4.7 10^3/uL (1.8-7.8); NEUTROPHILS % (AUTO) 61 % (42-75); PLATELET COUNT 247 10^3/uL (130-400); WHITE BLOOD COUNT 7.7 10^3/uL (4.3-11.0)
--- NOTE | 2022-06-03 20:52 | ED General ---
General Stated Complaint: SOB, TINGLY EXTREMITIES Source of Information: Patient History of Present Illness Date Seen by Provider: Jun 03, 2022 Time Seen by Provider: 20:35 Initial Comments 77-year-old female presenting with complaints of feeling dizzy and short of breath. Over the last hour she has had tingling in both of her arms. She feels a little nauseated. She states that she was at a birthday celebration at a local restaurant and she started feeling bad. She had one of her friends take her home. She continued to feel bad so she decided to come to the emergency department. She felt like there was something right and she wanted to be evaluated. When she checked her blood pressure at home she reports that it was elevated. She denies having fever, chills, chest pain, vomiting, change in bowels, pain with urination. Timing/Duration: 1-3 Hours Severity: Moderate Modifying Factors: worse with Movement Associated Systoms: No Chest Pain, No Cough, No Diaphoresis, No Fever/Chills, No Headaches, No Loss of Appetite; Malaise, Nausea/Vomiting (nausea but no vomiting); No Seizure; Shortness of Air; No Syncope; Weakness (general) Allergies and Home Medications Allergies Coded Allergies: amoxicillin (Verified Allergy, Mild, Diarrhea, 07/06/20) Diarrhea clavulanic acid (Verified Allergy, Mild, Diarrhea, 07/06/20) Diarrhea Patient Home Medication List Home Medication List Reviewed: Yes Albuterol Sulfate (Proair Hfa) 1 Puff Puff, 2 PUFF IH Q4H PRN for SHORTNESS OF BREATH, (Reported) Entered as Reported by: RAVINDER DAVIDSON on 07/06/201521 Ascorbic Acid (Vitamin C) 500 Mg Capsule.er, 500 MG PO DAILY, (Reported) Entered as Reported by: RAVINDER DAVIDSON on 07/06/201521 Carvedilol (Carvedilol) 25 Mg Tablet, 25 MG PO BID, (Reported) Entered as Reported by: RAVINDER DAVIDSON on 07/06/201521 Cholecalciferol (Vitamin D3) (Vitamin D3) 50 Mcg Capsule, 50 MCG PO DAILY, (Reported) Entered as Reported by: RAVINDER DAVIDSON on 07/06/201521 Ciprofloxacin HCl (Ciprofloxacin HCl) 250 Mg Tablet, 250 MG PO BID Prescribed by: LOI RODRIGUEZ on 12/16/212053 Fluticasone/Salmeterol (Advair 100-50 Diskus) 1 Each Blst.w.dev, 1 EACH IH BID, (Reported) Entered as Reported by: RAVINDER DAVIDSON on 07/06/201521 Furosemide (Lasix) 40 Mg Tablet, 40 MG PO PRN, (Reported) Entered as Reported by: RAVINDER DAVIDSON on 07/06/201521 Losartan Potassium (Losartan Potassium) 100 Mg Tablet, 100 MG PO DAILY, (Reported) Entered as Reported by: RAVINDER DAVIDSON on 07/06/201521 Lovastatin (Lovastatin) 40 Mg Tablet, 40 MG PO HS, (Reported) Entered as Reported by: RAVINDER DAVIDSON on 07/06/201521 Magnesium Oxide (Magnesium) 250 Mg Tablet, 250 MG PO DAILY, (Reported) Entered as Reported by: RAVINDER DAVIDSON on 07/06/201521 Melatonin (Melatonin) 10 Mg Capsule, 10 MG PO HS, (Reported) Entered as Reported by: RAVINDER DAVIDSON on 07/06/201521 Potassium Chloride (Potassium Chloride) 10 Meq Capsule.er, 10 MEQ PO DAILY, (Reported) Entered as Reported by: RAVINDER DAVIDSON on 07/06/201521 Tiotropium [place] (Spiriva) 1 Inh Aerp, 1 INH IH DAILY, (Reported) Entered as Reported by: RAVINDER DAVIDSON on 07/06/201521 Vit A/C/E/Zinc/Selenium/Copper (Vision Formula Tablet) 1 Each Tablet, 1 EACH PO DAILY, (Reported) Entered as Reported by: RAVINDER DAVIDSON on 07/06/201521 Zolpidem Tartrate (Ambien) 10 Mg Tablet, 5 MG PO HS PRN for INSOMNIA, (Reported) Entered as Reported by: RAVINDER DAVIDSON on 07/06/201521 Review of Systems Review of Systems Constitutional: No chills, No diaphoresis; dizziness; No fever EENTM: no symptoms reported Respiratory: short of breath Cardiovascular: see HPI Gastrointestinal: see HPI Genitourinary: no symptoms reported Musculoskeletal: no symptoms reported Skin: No rash Psychiatric/Neurological: Anxiety, Tingling (bilateral arms) Past Ayubqud-Aahetj-Nzzrmc Hx Patient Social History Tobacco Use?: No Smoking Status: Former Smoker Substance use?: No Alcohol Use?: No Immunizations Up To Date Tetanus Booster (TDap): Less than 5yrs Seasonal Allergies Seasonal Allergies: No Past Medical History Surgery/Hospitalization HX: COPD, HTN, L1 compression fracture, Cholecystectomy, Hysterectomy, Hypercholesterolemia, CAD Surgeries: Yes (Foot surgery, Cornary stents x 3 w/ heart cath) Gallbladder, Hysterectomy, Tonsillectomy Respiratory: Yes COPD Cardiac: Yes (Heart stents X 24 Jan 2017) Coronary Artery Disease, High Cholesterol, Hypertension Neurological: No Sexually Transmitted Disease: No HIV/AIDS: No Genitourinary: No Gastrointestinal: Yes (DYSPHAGIA, HOARSNESS) Musculoskeletal: Yes Arthritis, Chronic Back Pain Endocrine: No HEENT: Yes (GLASSES) Loss of Vision: Denies Hearing Impairment: Denies Cancer: No Psychosocial: No Integumentary: No Blood Disorders: No Adverse Reaction/Blood Tranf: No (N/A) Physical Exam Vital Signs Vital Signs - First Documented 06/03/22 20:38 Temp 36.5 Pulse 84 Resp 18 B/P (MAP) 161/91 (114) Pulse Ox 99 O2 Delivery Room Air Capillary Refill : Height, Weight, BMI Height: '" Weight: lbs. oz. kg; 32.00 BMI Method: General Appearance: Anxious, Mild Distress HEENT: PERRL/EOMI, Pharynx Normal Neck: Full Range of Motion, Normal Inspection, Non Tender, Supple Respiratory: Chest Non Tender, Lungs Clear, No Accessory Muscle Use, No Respiratory Distress, Decreased Breath Sounds Cardiovascular: Regular Rate, Rhythm, Normal Peripheral Pulses Gastrointestinal: Normal Bowel Sounds, No Pulsatile Mass, Non Tender, Soft Extremity: Normal Capillary Refill, Normal Range of Motion, Non Tender, No Calf Tenderness, Pedal Edema (1 + pitting edema BLE to the knee. 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 Norm as Tested, Other (anxious) Skin: Normal Color, Warm/Dry Progress/Results/Core Measures Suspected Sepsis SIRS Temperature: Pulse: Respiratory Rate: Laboratory Tests 06/03/22 20:40: White Blood Count 7.7 Blood Pressure / Mean: Laboratory Tests 06/03/22 20:40: Creatinine 1.00, INR Comment 1.0, Platelet Count 247, Total Bilirubin 0.3 Results/Orders Lab Results Laboratory Tests Test 06/03/22 20:40 Range/Units White Blood Count 7.7 4.3-11.0 10^3/uL Red Blood Count 3.83 3.80-5.11 10^6/uL Hemoglobin 10.7 L 11.5-16.0 g/dL Hematocrit 31 L 35-52 % Mean Corpuscular Volume 81 80-99 fL Mean Corpuscular Hemoglobin 28 25-34 pg Mean Corpuscular Hemoglobin Concent 35 32-36 g/dL Red Cell Distribution Width 14.2 10.0-14.5 % Platelet Count 247 130-400 10^3/uL Mean Platelet Volume 9.4 9.0-12.2 fL Immature Granulocyte % (Auto) 0 % Neutrophils (%) (Auto) 61 42-75 % Lymphocytes (%) (Auto) 27 12-44 % Monocytes (%) (Auto) 10 0-12 % Eosinophils (%) (Auto) 1 0-10 % Basophils (%) (Auto) 1 0-10 % Neutrophils # (Auto) 4.7 1.8-7.8 10^3/uL Lymphocytes # (Auto) 2.1 1.0-4.0 10^3/uL Monocytes # (Auto) 0.7 0.0-1.0 10^3/uL Eosinophils # (Auto) 0.1 0.0-0.3 10^3/uL Basophils # (Auto) 0.0 0.0-0.1 10^3/uL Immature Granulocyte # (Auto) 0.0 0.0-0.1 10^3/uL Prothrombin Time 13.4 12.2-14.7 SEC INR Comment 1.0 0.8-1.4 Activated Partial Thromboplast Time 27 24-35 SEC Sodium Level 124 *L 135-145 MMOL/L Potassium Level 4.4 3.6-5.0 MMOL/L Chloride Level 93 L 98-107 MMOL/L Carbon Dioxide Level 23 21-32 MMOL/L Anion Gap 8 5-14 MMOL/L Blood Urea Nitrogen 18 7-18 MG/DL Creatinine 1.00 0.60-1.30 MG/DL Estimat Glomerular Filtration Rate 57 BUN/Creatinine Ratio 18 Glucose Level 94 70-105 MG/DL Calcium Level 8.6 8.5-10.1 MG/DL Corrected Calcium 8.8 8.5-10.1 MG/DL Magnesium Level 1.9 1.6-2.4 MG/DL Total Bilirubin 0.3 0.1-1.0 MG/DL Aspartate Amino Transf (AST/SGOT) 18 5-34 U/L Alanine Aminotransferase (ALT/SGPT) 12 0-55 U/L Alkaline Phosphatase 71 40-136 U/L Troponin I < 0.30 <0.30 NG/ML Pro-B-Type Natriuretic Peptide 315.2 <450.0 PG/ML Total Protein 5.7 L 6.4-8.2 GM/DL Albumin 3.7 3.2-4.5 GM/DL Lipase 23 8-78 U/L My Orders Orders - LOI RODRIGUEZ MD Cbc With Automated Diff (06/03/22 20:40) Magnesium (06/03/22 20:40) Chest 1 View Ap/Pa Only (06/03/22 20:40) Ekg Tracing (06/03/22 20:40) Comprehensive Metabolic Panel (06/03/22 20:40) Protime With Inr (06/03/22 20:40) Partial Thromboplastin Time (06/03/22 20:40) O2 (06/03/22 20:40) Monitor-Rhythm Ecg Trace Only (06/03/22 20:40) Ed Iv/Invasive Line Start (06/03/22 20:40) Lipase (06/03/22 20:40) Troponin I Fs (06/03/22 20:40) Probnp Fs (06/03/22 20:40) Ua Culture If Indicated (06/03/22 20:40) Ct Head Wo (06/03/22 20:40) Ondansetron Injection (Zofran Injectio (06/03/22 21:27) Ns Iv 500 Ml (Sodium Chloride 0.9%) (06/03/22 21:27) Vital Signs/I&O 06/03/22 06/03/22 20:38 22:17 Temp 36.5 Pulse 84 66 Resp 18 16 B/P (MAP) 161/91 (114) 161/64 Pulse Ox 99 98 O2 Delivery Room Air Room Air Capillary Refill : Progress Note #1: Progress Note Obtain basic labs including cardiac enzymes. EKG and chest x-ray to evaluate her heart and lungs. Placed on cardiac telemetry monitoring. CT scan of the head since she was complaining of tingling in both arms and feeling dizzy. Urinalysis to look for signs of UTI. Differential diagnosis includes pneumonia, myocardial infarction, palpitations, anxiety, UTI, sinusitis Progress Note #2: Progress Note Labs did not show any acute significant normality on CBC. Chemistry does show hyponatremia with a sodium down to 124. Normally she is 130 or higher. Her renal function appeared stable. She had no acute cardiac enzyme elevation to indicate cardiac process. Her chest x-ray was stable without acute process. CT scan of the head also appeared stable without evidence of bleeding, mass, acute stroke. Ordered normal saline 500 mL bolus and a dose of Zofran 4 mg IV when the patient had an episode of nausea and felt like she was going to throw up after coughing. [address] Farmer for the [facility] service and patient started having nausea and feeling like she was going to throw up in addition to her dizziness. Will admit for IV fluid gentle hydration, oral fluid restriction to 800 mL. Give salt tablet 1 g p.o. 3 times daily. ECG Initial ECG Impression Date: Jun 03, 2022 Initial ECG Impression Time: 20:43 Initial ECG Rate: 66 Initial ECG Rhythm: Normal Sinus Initial ECG Comparisson: Unchanged Comment Normal sinus rhythm with a heart rate of 66 bpm. VT interval [address] elevation. QT interval 372 ms with a QTc interval 386 ms. Overall appears similar to prior tracings in the system. Diagnostic Imaging Diagonstic Imaging: CT Plain Films/CT/US/NM/MRI: head Comments [facility]. [place], [place] NAME: JAKE DARNELL [facility] REC#: [id number] PT STATUS: REG ER : 1945 PHYSICIAN: LOI RODRIGUEZ MD ADMIT DATE: 06/03/22/ER FS Signed Date of Exam:06/03/22 CT HEAD WO INDICATION: Dizziness as well as tingling in both arms. TECHNIQUE: Multiple contiguous axial images were obtained through the brain without the use of intravenous contrast. Auto Exposure Controls were utilized during the CT exam to meet ALARA standards for radiation dose reduction. COMPARISON: 05/04/2020. FINDINGS: There are mild atrophic changes. There are no extra-axial fluid collections. No intracranial hemorrhage. No intracranial mass or mass effect. No midline shift. The ventricles are normal in size and position. There are no focal parenchymal abnormalities in the brain. Calvarial windows appear unremarkable. IMPRESSION: Mild atrophic changes with no acute intracranial abnormality. Dictated by: Dictated on workstation # [id number] Dict: 06/03/222105 Trans: 06/03/222123 [facility] [id number] Interpreted by: CHAPARRO MCCAIN MD Electronically signed by: CHAPARRO MCCAIN MD 06/03/222123 Reviewed: Reviewed by Me Diagonstic Imaging: Xray Plain Films/CT/US/NM/MRI: chest Comments [facility], [place] NAME: JAKE DARNELL [facility] REC#: [id number] PT STATUS: REG ER : 1945 PHYSICIAN: LOI RODRIGUEZ MD ADMIT DATE: 06/03/22/ER FS Signed Date of Exam:06/03/22 CHEST 1 VIEW AP/PA ONLY INDICATION: Shortness of breath and arm tingling. EXAMINATION: Frontal chest was obtained at 8:58 p.m. COMPARISON: 09/26/2019. Heart is top limits of normal in size. There are chronic appearing increased interstitial markings. There is no acute consolidation or pneumothorax or pleural fluid. IMPRESSION: Stable chronic changes with no acute process in the chest. Dictated by: Dictated on workstation # [id number] Dict: 06/03/222109 Trans: 06/03/222123 [place] [id number] Interpreted by: CHAPARRO MCCAIN MD Electronically signed by: CHAPARRO MCCAIN MD 06/03/222123 Reviewed: Reviewed by Me Departure Communication (Admissions) Time/Spoke to Admitting Phy: 21:35 d/w Dr. Farmer about pt and will admit for hyponatremia and for gentle IV hydration, salt tablets, fluid restrictions and recheck lab in am. Impression Primary Impression: Hyponatremia Additional Impressions: Dizziness Tingling of left upper extremity Tingling of right upper extremity Nausea & vomiting Qualified Codes: R11.2 - Nausea with vomiting, unspecified Disposition: 30 STILL A PATIENT Condition: Stable Admissions Decision to Admit Reason: Admit from ER (General) Decision to Admit/Date: Jun 03, 2022 Time/Decision to Admit Time: 21:35 Departure-Patient Inst. Referrals: NEENA ASHARF MD (PCP/Family) Primary Care Physician LOI RODRIGUEZ MD Jun 03, 2022 20:52
[2022-06-03 20:59] LABS: PROTHROMBIN TIME PATIENT 13.4 SEC (12.2-14.7)
[2022-06-03 21:06] LABS: BILIRUBIN,TOTAL 0.3 MG/DL (0.1-1.0); CALCIUM 8.6 MG/DL (8.5-10.1); MAGNESIUM 1.9 MG/DL (1.6-2.4); POTASSIUM 4.4 MMOL/L (3.6-5.0)
[2022-06-03 21:07] LABS: ALBUMIN 3.7 GM/DL (3.2-4.5); TOTAL PROTEIN 5.7 GM/DL (6.4-8.2)
--- NOTE | 2022-06-03 21:12 | Diagnostic Imaging Report ---
INDICATION: Shortness of breath and arm tingling. EXAMINATION: Frontal chest was obtained at 8:58 p.m. COMPARISON: 09/26/2019. Heart is top limits of normal in size. There are chronic appearing increased interstitial markings. There is no acute consolidation or pneumothorax or pleural fluid. IMPRESSION: Stable chronic changes with no acute process in the chest. Dictated by: Dictated on workstation # [id number]
--- NOTE | 2022-06-03 21:14 | Diagnostic Imaging Report ---
INDICATION: Dizziness as well as tingling in both arms. TECHNIQUE: Multiple contiguous axial images were obtained through the brain without the use of intravenous contrast. Auto Exposure Controls were utilized during the CT exam to meet ALARA standards for radiation dose reduction. COMPARISON: 05/04/2020. FINDINGS: There are mild atrophic changes. There are no extra-axial fluid collections. No intracranial hemorrhage. No intracranial mass or mass effect. No midline shift. The ventricles are normal in size and position. There are no focal parenchymal abnormalities in the brain. Calvarial windows appear unremarkable. IMPRESSION: Mild atrophic changes with no acute intracranial abnormality. Dictated by: Dictated on workstation # [id number]
[2022-06-03] MEDS ORDERED: ONDANSETRON 4 MG/2 ML (SDV) Z0FRAN IVP STA (21:27)
[2022-06-03] MEDS ORDERED: NS IV 500 ML 500 ML IV STA (21:27)
[2022-06-04] MEDS: NS IV 1000 ML 1,000 ML IV SCH ×2 (00:14→12:23)
[2022-06-04] MEDS ORDERED: ACETAMINOPHEN 325 MG TABLET PO PRN (00:15)
[2022-06-04] MEDS ORDERED: ONDANSETRON 4 MG/2 ML (SDV) Z0FRAN IV PRN (00:15)
[2022-06-04 00:23] VITALS: BP 150/70
[2022-06-04] MEDS ORDERED: SPIR25TA5 PO (00:29)
[2022-06-04] MEDS ORDERED: LOSA50TA63 PO (01:45)
[2022-06-04] MEDS ORDERED: ROSU40TA23 PO (01:45)
[2022-06-04 04:00] VITALS: BP 155/69
[2022-06-04 06:43] LABS: POTASSIUM 4.1 MMOL/L (3.6-5.0)
[2022-06-04 06:44] LABS: CALCIUM 8.6 MG/DL (8.5-10.1)
[2022-06-04 06:48] LABS: CREATININE SERUM 0.84 MG/DL (0.60-1.30)
--- NOTE | 2022-06-04 07:51 | Short Stay Summary-Hospitalist ---
History of Present Illness HPI/Chief Complaint CC: Weakness with hyponatremia HPI: This is a 77yoWF clinic patient of Dr Beck and Cardiology at [facility] who presents to the ER with weakness and near syncope and found to have hyponatremia at 124. Patient was given IVF NS and salt tablets and fluid restricted all night and she is doing well and wants to go home. Aldactone has been suspected for hypotension and causing the hypoatremia so we will hold it and she will call her Manufacturing Inspector Sunday with the plan on that med. Source: patient Exam Limitations: no limitations Date Seen 06/04/22 Time Seen by a Provider: 11:00 Attending Physician Andres Beck MD PCP Admitting Physician: Miriam Farmer DO Attending Physician: Miriam Farmer DO Referring Physician Date of Admission Jun 03, 2022 at 23:30 Home Medications & Allergies Home Medications Reviewed patient Home Medication Reconciliation performed by pharmacy medication reconciliations commercial hvac service technician and/or nursing. Patients Allergies have been reviewed. Allergies Allergies Coded Allergies amoxicillin (Verified Allergy, Mild, Diarrhea, 07/06/20) Diarrhea clavulanic acid (Verified Allergy, Mild, Diarrhea, 07/06/20) Diarrhea Past Bkvjgxo-Idvpcf-Gbwbgr Hx Patient Social History Marrital Status: single Employed/Student: retired Tobacco Use?: No Smoking Status: Unknown if Ever Smoked Use of E-Cig and/or Vaping dev: No Substance use?: No Alcohol Use?: No Pt feels they are or have been: No Immunizations Up To Date Date of Influenza Vaccine: Jun 28, 2020 Date of Pneumonia Vaccine: Oct 02, 2016 Seasonal Allergies Seasonal Allergies: No Current Status Advance Directives: No Communicates: Verbally Primary Language: Albanian Preferred Spoken Language: Albanian Is interpretation needed?: No Sensory deficits: Vision impairment Implanted or Applied Medical D: Stents Past Medical History Surgeries: Gallbladder, Hysterectomy, Tonsillectomy COPD Coronary Artery Disease, High Cholesterol, Hypertension Sexually Transmitted Disease: No HIV/AIDS: No Arthritis, Chronic Back Pain Loss of Vision: Denies Hearing Impairment: Denies Blood Disorders: No Adverse Reaction/Blood Tranf: No (N/A) Review of Systems Constitutional: see HPI, malaise, weakness Physical Exam Physical Exam Vital Signs Vital Signs - First Documented 06/03/22 20:38 Temp 36.5 Pulse 84 Resp 18 B/P (MAP) 161/91 (114) Pulse Ox 99 O2 Delivery Room Air Capillary Refill : Less Than 3 Seconds Height, Weight, BMI Height: '" Weight: lbs. oz. kg; 32.00 BMI Method: General Appearance: No Apparent Distress, Anxious, Chronically ill, Mild Distress HEENT: PERRL/EOMI, Pharynx Normal Neck: Full Range of Motion, Normal Inspection, Non Tender, Supple Respiratory: Chest Non Tender, Lungs Clear, No Accessory Muscle Use, No Respiratory Distress, Decreased Breath Sounds Cardiovascular: Regular Rate, Rhythm, Normal Peripheral Pulses Gastrointestinal: Normal Bowel Sounds, No Pulsatile Mass, Non Tender, Soft Extremity: Normal Capillary Refill, Normal Range of Motion, Non Tender, No Calf Tenderness, Pedal Edema (1 + pitting edema BLE to the knee. 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 Short Stay Diagnosis Discharge Diagnosis-Short Stay Admission Diagnosis Weakness with hyponatremia Final Discharge Diagnosis Weakness with hyponatremia Conclusion Plan DC home Hold Aldactone Diagnosis/Problems Diagnosis/Problems (1) Hyponatremia Status: Acute (2) Dizziness Status: Acute MIRIAM FARMER DO Jun 04, 2022 07:51
[2022-06-04 08:13] VITALS: BP 122/56
[2022-06-04] MEDS ORDERED: SODIUM CHLORIDE 1 GM TABLET PO SCH (09:00)
[2022-06-04 11:53] VITALS: BP 143/65
[2022-06-04] MEDS ORDERED: ASPI-1238 PO (13:17)
[2022-06-04] MEDS ORDERED: CALC600T91 PO (13:17)
== END 2022-06-04 13:24 | disposition home or self-care (01) ==
LOC: EDUNIT# 20:35 → ER FS 20:39 → 4TH 23:30
PROVIDERS: ADMIT Internal Medicine; ATTEND Internal Medicine
DX: E87.1 Hypo-osmolality and hyponatremia (principal); Z87.891 Personal history of nicotine dependence
CPT/HCPCS: 36415; 70450; 71045; 80048; 80053; 83690; 83735; 83880; 84484; 85610; 85730; 93005; 93041; G0378

== ENCOUNTER → 2022-08-14 | Outpatient (CLI) | payer MEDICARE ==
[~2022-08-14] MED LIST changes: +ALBU8.5H6 IH; +ASPI-1238 PO; +CALC600T91 PO; +LOSA50TA63 PO; +ROSU40TA23 PO; -RT-ALBUINH IH; +SPIR25TA5 PO
--- NOTE | 2022-08-14 11:22 | Diagnostic Imaging Report ---
PROCEDURE: MRI lumbar spine. TECHNIQUE: Multiplanar, multisequence MRI of the lumbar spine was performed without contrast. INDICATION: Pain. Correlated with abdominal pelvic CT 11/19/2019 that exam including sagittal and coronal reconstructions. Rightward convexity lumbar degenerative scoliotic curvature a chronic finding. Grade 1 anterolisthesis L3 on L4 and L4 on L5 unchanged. Since the previous exam, a retropulsed L1 vertebral body 2 column burst fracture has occurred however this is without any marrow edema and while new from the prior its clearly nonacute and chronic. Its retropulsion is greatest at the midline by about 8 to 3 mm and results in moderate to severe canal stenosis. Remaining lumbar statures are stable and no acute marrow signal pathology. Malalignment L3-L4 with disc bulge and endplate osteophytes result in a mild to moderate right and severe left foraminal stenosis and severe central canal stenosis. At L4-L5 there is moderate bi-foraminal stenosis with moderate canal stenosis. At L5-S1 there is mild to moderate right foraminal narrowing. IMPRESSION: 1. New retropulsed burst fracture L1 however showed no marrow edema and while having developed since October 2019 this is nonedematous and nonacute. Its retropulsion results in canal stenosis. 2. Stable grade 1 degenerative listheses L3-L4 and L4-L5 with canal and biforaminal stenoses detailed above. 3. No marrow edema or acute-appearing bony pathology. Dictated by: Dictated on workstation # [id number]
== END ==
LOC: RAD 10:15
PROVIDERS: ATTEND Family Medicine
DX: S32.011A Stable burst fracture of first lumbar vertebra, initial encounter for closed fracture (principal); M48.062 Spinal stenosis, lumbar region with neurogenic claudication; M43.16 Spondylolisthesis, lumbar region; M41.86 Other forms of scoliosis, lumbar region; X58.XXXA Exposure to other specified factors, initial encounter
CPT/HCPCS: 72148

== ENCOUNTER 2023-01-02 12:14 | Observation (INO) | payer MEDICARE ==
[~2023-01-02] VITALS: Ht 162.6 cm; Wt 66.5 kg
[~2023-01-02 12:14] MED LIST changes: -POTA10CA43 PO; +POTA10CA44 PO
--- NOTE | 2023-01-02 12:24 | ED General ---
General Chief Complaint: General Problems/Pain Stated Complaint: LOW POTASSIUM History of Present Illness Date Seen by Provider: Jan 02, 2023 Time Seen by Provider: 12:18 Initial Comments 77-year-old female with PMH of CAD, stents placed 6 years ago/COPD/HTN/CHF on Lasix/spine surgery 6 weeks ago, and discharged home from rehab on Sunday which was 3 days ago. Patient is here with complaints of low potassium level told to her by her PCP office, and malaise and lethargy with loss of appetite, abdominal pain, and nausea and vomiting, causing her to not be able to keep any food or liquids down. Denies fever and chills, chest pain, palpitations, headache, dizziness. Patient had constipation for about 10 days and was given Dulcolax, which resolved the constipation. No known sick contacts. Allergies and Home Medications Allergies Coded Allergies: amoxicillin (Verified Allergy, Mild, Diarrhea, 07/06/20) Diarrhea clavulanic acid (Verified Allergy, Mild, Diarrhea, 07/06/20) Diarrhea Patient Home Medication List Home Medication List Reviewed: Yes Albuterol Sulfate (Ventolin Hfa) 1 Puff Puff, 2 PUFF IH Q4H PRN for SHORTNESS OF BREATH, (Reported) Entered as Reported by: RAVINDER DAVIDSON on 07/06/201521 Aspirin (Aspirin EC) 81 Mg Tablet.dr, 81 MG PO DAILY, (Reported) Entered as Reported by: MEGHNA LUCERO on 06/04/22 1317 Calcium Carbonate (Calcium) 600 Mg Calcium (1500 Mg) Tablet, 600 MG PO DAILY, (Reported) Entered as Reported by: MEGHNA LUCERO on 06/04/22 1317 Carvedilol (Carvedilol) 25 Mg Tablet, 25 MG PO BID, (Reported) Entered as Reported by: RAVINDER DAVIDSON on 07/06/20 152 Cholecalciferol (Vitamin D3) (Vitamin D3) 50 Mcg Capsule, 50 MCG PO DAILY, (Reported) Entered as Reported by: RAVINDER DAVIDSON on 07/06/20 152 Fluticasone/Salmeterol (Advair 100-50 Diskus) 1 Each Blst.w.dev, 1 EACH IH BID, (Reported) Entered as Reported by: RAVINDER DAVIDSON on 07/06/201521 Losartan Potassium (Losartan Potassium) 50 Mg Tablet, 50 MG PO DAILY Prescribed by: ROSALES PATTON on 06/04/22144 Melatonin (Melatonin) 10 Mg Capsule, 10 MG PO HS, (Reported) Entered as Reported by: RAVINDER DAVIDSON on 07/06/201521 Rosuvastatin Calcium (Rosuvastatin Calcium) 40 Mg Tablet, 40 MG PO DAILY Prescribed by: ROSALES PATTON on 06/04/22144 Tiotropium [place] (Spiriva) 1 Inh Aerp, 1 INH IH DAILY, (Reported) Entered as Reported by: RAVINDER DAVIDSON on 07/06/20 152 Zolpidem Tartrate (Ambien) 10 Mg Tablet, 5 MG PO HS PRN for INSOMNIA, (Reported) Entered as Reported by: RAVINDER DAVIDSON on 07/06/201521 Review of Systems Review of Systems Constitutional: see HPI, malaise EENTM: no symptoms reported Respiratory: no symptoms reported Cardiovascular: no symptoms reported Gastrointestinal: see HPI, abdominal pain, loss of appetite, nausea, vomiting Genitourinary: no symptoms reported Musculoskeletal: no symptoms reported Skin: no symptoms reported Psychiatric/Neurological: No Symptoms Reported Hematologic/Lymphatic: No Symptoms Reported Immunological/Allergic: no symptoms reported Past Hoqsspt-Twmbxx-Rfnrym Hx Immunizations Up To Date Tetanus Booster (TDap): Less than 5yrs Seasonal Allergies Seasonal Allergies: No Past Medical History Surgery/Hospitalization HX: COPD, HTN, L1 compression fracture, Cholecystectomy, Hysterectomy, Hypercholesterolemia, CAD Surgeries: Yes (Foot surgery, Cornary stents x 3 w/ heart cath) Gallbladder, Hysterectomy, Tonsillectomy Respiratory: Yes COPD Cardiac: Yes (Heart stents X 24 Jan 2017) Coronary Artery Disease, High Cholesterol, Hypertension Neurological: No Sexually Transmitted Disease: No HIV/AIDS: No Genitourinary: No Gastrointestinal: Yes (DYSPHAGIA, HOARSNESS) Musculoskeletal: Yes Arthritis, Chronic Back Pain Endocrine: No HEENT: Yes (GLASSES) Loss of Vision: Denies Hearing Impairment: Denies Cancer: No Psychosocial: No Integumentary: No Blood Disorders: No Adverse Reaction/Blood Tranf: No (N/A) Physical Exam Vital Signs Vital Signs - First Documented 01/02/23 12:31 Pulse 79 Resp 16 B/P (MAP) 133/68 (89) Pulse Ox 94 O2 Delivery Room Air Capillary Refill : Height, Weight, BMI Height: '" Weight: lbs. oz. kg; 32.00 BMI Method: General Appearance: No Apparent Distress, Anxious HEENT: PERRL/EOMI, Normal ENT Inspection Neck: Full Range of Motion, Normal Inspection, Non Tender, Supple Respiratory: Chest Non Tender, Lungs Clear, Normal Breath Sounds Cardiovascular: Regular Rate, Rhythm, Other (Bilateral pedal edema :chronic problem) Gastrointestinal: Normal Bowel Sounds, No Organomegaly, Soft, Tenderness (Gen eralized) Back: Normal Inspection, No CVA Tenderness Extremity: Normal Range of Motion Neurologic/Psychiatric: Alert, Oriented x3, No Motor/Sensory Deficits, Normal Mood/Affect Skin: Normal Color Focused Exam Lactate Level 01/02/23 12:30: Lactic Acid Level 1.20 Lactic Acid Level Laboratory Tests Test 01/02/23 12:30 Lactic Acid Level 1.20 MMOL/L (0.50-2.00) Progress/Results/Core Measures Suspected Sepsis SIRS Temperature: Pulse: Respiratory Rate: Laboratory Tests 01/02/23 12:30: White Blood Count 7.9 Blood Pressure / Mean: 01/02/23 12:30: Lactic Acid Level 1.20 Laboratory Tests 01/02/23 12:30: Creatinine 0.65, Platelet Count 229, Total Bilirubin 0.6 Results/Orders Lab Results Laboratory Tests Test 01/02/23 12:30 01/02/23 12:54 01/02/23 13:48 Range/Units White Blood Count 7.9 4.3-11.0 10^3/uL Red Blood Count 4.78 3.80-5.11 10^6/uL Hemoglobin 11.6 11.5-16.0 g/dL Hematocrit 36 35-52 % Mean Corpuscular Volume 75 L 80-99 fL Mean Corpuscular Hemoglobin 24 L 25-34 pg Mean Corpuscular Hemoglobin Concent 32 32-36 g/dL Red Cell Distribution Width 18.0 H 10.0-14.5 % Platelet Count 229 130-400 10^3/uL Mean Platelet Volume 9.2 9.0-12.2 fL Immature Granulocyte % (Auto) 0 % Neutrophils (%) (Auto) 64 42-75 % Lymphocytes (%) (Auto) 21 12-44 % Monocytes (%) (Auto) 10 0-12 % Eosinophils (%) (Auto) 5 0-10 % Basophils (%) (Auto) 0 0-10 % Neutrophils # (Auto) 5.0 1.8-7.8 10^3/uL Lymphocytes # (Auto) 1.7 1.0-4.0 10^3/uL Monocytes # (Auto) 0.8 0.0-1.0 10^3/uL Eosinophils # (Auto) 0.4 H 0.0-0.3 10^3/uL Basophils # (Auto) 0.0 0.0-0.1 10^3/uL Immature Granulocyte # (Auto) 0.0 0.0-0.1 10^3/uL Sodium Level 128 L 135-145 MMOL/L Potassium Level 2.7 L 3.6-5.0 MMOL/L Chloride Level 82 L 98-107 MMOL/L Carbon Dioxide Level 37 H 21-32 MMOL/L Anion Gap 9 5-14 MMOL/L Blood Urea Nitrogen 9 7-18 MG/DL Creatinine 0.65 0.60-1.30 MG/DL Estimat Glomerular Filtration Rate 90 BUN/Creatinine Ratio 14 Glucose Level 111 H 70-105 MG/DL Lactic Acid Level 1.20 0.50-2.00 MMOL/L Calcium Level 9.6 8.5-10.1 MG/DL Corrected Calcium 9.9 8.5-10.1 MG/DL Magnesium Level 1.6 1.6-2.4 MG/DL Total Bilirubin 0.6 0.1-1.0 MG/DL Aspartate Amino Transf (AST/SGOT) 22 5-34 U/L Alanine Aminotransferase (ALT/SGPT) 14 0-55 U/L Alkaline Phosphatase 186 H 40-136 U/L Troponin I < 0.30 <0.30 NG/ML Total Protein 5.7 L 6.4-8.2 GM/DL Albumin 3.6 3.2-4.5 GM/DL Lipase 130 H 8-78 U/L Influenza Type A (RT-PCR) Not Detected Not Detecte Influenza Type B (RT-PCR) Not Detected Not Detecte SARS-CoV-2 RNA (RT-PCR) Not Detected Not Detecte Urine Color YELLOW Urine Clarity CLOUDY Urine pH 7.0 5-9 Urine Specific [place] 1.010 L 1.016-1.022 Urine Protein NEGATIVE NEGATIVE Urine Glucose (UA) NEGATIVE NEGATIVE Urine Ketones NEGATIVE NEGATIVE Urine Nitrite NEGATIVE NEGATIVE Urine Bilirubin 1+ H NEGATIVE Urine Urobilinogen 0.2 < = 1.0 MG/DL Urine Leukocyte Esterase TRACE H NEGATIVE Urine RBC (Auto) NEGATIVE NEGATIVE Urine RBC NONE /HPF Urine WBC 5-10 H /HPF Urine Squamous Epithelial Cells 10-25 H /HPF Urine Crystals NONE /LPF Urine Bacteria LARGE H /HPF Urine Casts NONE /LPF Urine Mucus SMALL H /LPF Urine Culture Indicated YES My Orders Orders - ARIAS MERCER MD Cbc With Automated Diff (01/02/23 12:17) Comprehensive Metabolic Panel (01/02/23 12:17) Magnesium (01/02/23 12:17) Ua Culture If Indicated (01/02/23 12:17) Blood Culture (01/02/23 12:24) Lactic Acid Analyzer (01/02/23 12:24) Lipase (01/02/23 12:24) Troponin I Fs (01/02/23 12:24) Ondansetron Injection (Zofran Injectio (01/02/23 12:45) Famotidine Injection (Pepcid Injection) (01/02/23 12:35) Ed Iv/Invasive Line Start (01/02/23 12:35) Ns Iv 1000 Ml (Sodium Chloride 0.9%) (01/02/23 12:35) Covid 19 Inhouse Test (01/02/23 12:36) Influenza A And B By Pcr (01/02/23 12:36) Ct Abdomen/Pelvis W (01/02/23 12:37) Continuous Ekg Monitoring (01/02/23 12:37) Ekg Tracing (01/02/23 12:37) Potassium Cl 10meq/50ml Ivpb (Kcl 10 Meq (01/02/23 13:13) Iohexol Injection (Omnipaque 350 Mg/Ml 1 (01/02/23 13:30) Received Contrast (Hold Metformin- Contr (01/02/23 13:30) Ns (Ivpb) (Sodium Chloride 0.9% Ivpb Bag (01/02/23 13:30) Urine Culture (01/02/23 13:48) Ceftriaxone 1 Gm Pre-Mix (Rocephin 1 Gm (01/02/23 14:38) Medications Given in ED Current Medications Medications Dose Ordered Sig/Roland Route Start Time Stop Time Status Last Admin Dose Admin Iohexol 100 ml ONCE ONCE IV 01/02/23 13:30 01/02/23 13:31 DC 01/02/23 13:30 80 ML Ondansetron HCl 4 mg ONCE ONCE IVP 01/02/23 12:45 01/02/23 12:46 DC 01/02/23 12:42 4 MG Sodium Chloride 100 ml ONCE ONCE IV 01/02/23 13:30 01/02/23 13:31 DC 01/02/23 13:30 100 ML Vital Signs/I&O 01/02/23 12:31 Pulse 79 Resp 16 B/P (MAP) 133/68 (89) Pulse Ox 94 O2 Delivery Room Air Capillary Refill : Progress Note : Progress Note 1. HYPOKALEMIA LEADING TO SYMPTOMS/ HYPONATREMIA: - CT ABD: see report - CBC: unremarkable, normal WBC - CMP: s. K+ is 2.7 , s. Na+ is 128 - Kidney function is stable - Lipase: 130 - Pepcid 20mg iv / Zofran 4mg iv / NS IVF at 250/hr, KCl 40mEq iv STAT - Pt will need admission to observation for electrolyte repletion and lab recheck. - Discussed with hospitalist at [facility], and accepted to observation 2. ACUTE CYSTITIS: - UA is positive for leukocyte esterase, WBC, bacteria - Ceftriaxone 1gm iv STAT 3. FLUID COLLECTION IN AREA OF SPINAL SURGERY: - CT shows a fluid collection in the area of spine surgery that is 15mm, and radiologist cannot rule out an abscess formation. - Discussed with [facility], spine surgeon, Dr Pacheco, who did the pt's surgery and stated that fluid collection post-op is normal and he is not concerned, and pt should follow up in clinic with him. ECG Initial ECG Impression Date: Jan 02, 2023 Initial ECG Impression Time: 12:51 Initial ECG Rate: 71 Initial ECG Rhythm: Normal Sinus Initial ECG Intervals: QT (Prolonged) Initial ECG Impression: Nonspecific Changes Initial ECG Comparisson: No Previous ECG Available Diagnostic Imaging Diagonstic Imaging: CT Plain Films/CT/US/NM/MRI: abdomen Comments [facility], [place] NAME: JAKE DARNELL [facility] REC#: [id number] PT STATUS: REG ER : 1945 PHYSICIAN: ARIAS MERCER MD ADMIT DATE: 01/02/23/ER FS Draft Date of Exam:01/02/23 CT ABDOMEN/PELVIS W PROCEDURE: CT abdomen and pelvis with contrast. TECHNIQUE: Multiple contiguous axial images were obtained through the abdomen and pelvis after administration of intravenous contrast. Auto Exposure Controls were utilized during the CT exam to meet ALARA standards for radiation dose reduction. All CT scans use one or more of the following dose optimizing techniques: Automated exposure control, MA and/or KvP adjustment based on patient size and exam type or iterative reconstruction. INDICATION: 77-year-old female, vomiting x9 days. One month post back surgery. Increasing severity of weakness. CORRELATION STUDY: CT abdomen and pelvis 11/19/2019. FINDINGS: LOWER THORAX: Emphysematous changes about the lung bases. No infiltrate with minimal basilar scarring. Heart size is generally normal. Gastroesophageal junction unremarkable. LIVER: Right hepatic lobe cyst. Very mild central intrahepatic bile duct dilatation. GALLBLADDER: Cholecystectomy. Common bile duct normal in size. SPLEEN: Unremarkable. PANCREAS: Unremarkable. ADRENAL GLANDS: Unremarkable. KIDNEYS: Normal configuration. No calcification or obstruction. ABDOMINAL AORTA: Moderate wall calcification, nonaneurysmal. GASTROINTESTINAL TRACT: No gastrointestinal tract obstruction. Very mild stool retention in the colon which is largely otherwise decompressed. There is wall thickening, particularly of the proximal ascending and transverse colon. Normal appendix. No abdominal ascites and/or free air. URINARY BLADDER: Unremarkable. REPRODUCTIVE: Hysterectomy. OSSEOUS STRUCTURES: Extensive prior surgical changes with decompression at L3-L4 with posterior fusion L2-L5. Grade 1 spondylolisthesis of L3 on L4 and L4 on L5. Marked burst fracture of L1 with vertebral plana present. Mild retropulsion into the spinal canal with resultant canal stenosis. Soft tissue distortion with edema and very small fluid collections are present. Focal encapsulated fluid collection measures 15 mm. OTHER: None. IMPRESSION: 1. No gastrointestinal tract obstruction. There is wall thickening of the proximal colon. May very well be due to its collapsed state. Colitis considered less likely but not excluded. 2. Postoperative changes of posterior decompression and fusion. There is soft tissue distortion and edema in the operative bed. Very small encapsulated fluid collection, nonspecific, could be reflective of a seroma, hematoma, or even perhaps very small abscess. Dictated on workstation # [id number] Dict: 01/02/23 1409 Trans: 01/02/23 1421 [id number] Interpreted by: DIVINE FRAGA DO Electronically signed by: Departure Communication (Admissions) Time/Spoke to Admitting Phy: 15:[address] Hart and accepted for observation Time/Spoke to Consulting Phy: 14:[address] Main, spine surgeon Impression Primary Impression: Hypokalemia due to excessive gastrointestinal loss of potassium Additional Impressions: Hyponatremia Acute cystitis without hematuria Fluid collection at surgical site Disposition: 30 STILL A PATIENT Condition: Stable Admissions Decision to Admit Reason: Admit from ER (General) Decision to Admit/Date: Jan 02, 2023 Time/Decision to Admit Time: 14:20 Transfer Transfer Reason: Exceeds level of care Method of Transfer: EMS Departure-Patient Inst. Referrals: NEENA ASHRAF MD (PCP/Family) Primary Care Physician ARIAS MERCER MD Jan 02, 2023 12:24
[2023-01-02 12:35] LABS: BASOPHILS % (AUTO) 0 % (0-10); EOSINOPHILS # (AUTO) 0.4 10^3/uL (0.0-0.3); EOSINOPHILS % (AUTO) 5 % (0-10); HEMATOCRIT 36 % (35-52); HEMOGLOBIN 11.6 g/dL (11.5-16.0); LYMPHOCYTES # (AUTO) 1.7 10^3/uL (1.0-4.0); LYMPHOCYTES % (AUTO) 21 % (12-44); MEAN CORPUSCULAR HEMOGLOBIN 24 pg (25-34); MEAN CORPUSCULAR HGB CONC 32 g/dL (32-36); MEAN CORPUSCULAR VOLUME 75 fL (80-99); MEAN PLATELET VOLUME 9.2 fL (9.0-12.2); MONOCYTES # (AUTO) 0.8 10^3/uL (0.0-1.0); MONOCYTES % (AUTO) 10 % (0-12); NEUTROPHILS % (AUTO) 64 % (42-75); PLATELET COUNT 229 10^3/uL (130-400); WHITE BLOOD COUNT 7.9 10^3/uL (4.3-11.0)
[2023-01-02] MEDS ORDERED: NS IV 1000 ML 1,000 ML IV STA (12:35)
[2023-01-02] MEDS ORDERED: FAMOTIDINE 20MG/2ML IV (PEPCID) IV STA (12:35)
[2023-01-02] MEDS ORDERED: ONDANSETRON 4 MG/2 ML (SDV) Z0FRAN IVP ONE (12:45)
[2023-01-02 13:05] LABS: POTASSIUM 2.7 MMOL/L (3.6-5.0)
[2023-01-02 13:06] LABS: ALBUMIN 3.6 GM/DL (3.2-4.5); BILIRUBIN,TOTAL 0.6 MG/DL (0.1-1.0); CALCIUM 9.6 MG/DL (8.5-10.1); CREATININE SERUM 0.65 MG/DL (0.60-1.30); MAGNESIUM 1.6 MG/DL (1.6-2.4); TOTAL PROTEIN 5.7 GM/DL (6.4-8.2)
[2023-01-02 13:07] LABS: LIPASE 130 U/L (8-78)
[2023-01-02] MEDS ORDERED: POTASSIUM CL 10MEQ/50ML IVPB 50 ML IV STA (13:13)
[2023-01-02] MEDS ORDERED: IOHEXOL 350 MG/ML 100 ML (OMNIPAQUE 350) VIAL IV ONE (13:30)
[2023-01-02] MEDS ORDERED: NS 100 ML (IVPB) BAG IV ONE (13:30)
[2023-01-02] MEDS ORDERED: HOLD METFORMIN - RECEIVED CONTRAST 20 ML VIAL IV SCH (13:30)
[2023-01-02 13:59] LABS: CLARITY,URINE CLOUDY; COLOR,URINE YELLOW; GLUCOSE, URINE (UA) NEGATIVE (NEGATIVE); KETONES,URINE NEGATIVE (NEGATIVE); LEUKOCYTE ESTERASE ,URINE TRACE (NEGATIVE); NITRITE,URINE NEGATIVE (NEGATIVE); PROTEIN,URINE NEGATIVE (NEGATIVE)
[2023-01-02 14:10] LABS: BACTERIA,URINE LARGE /HPF; BILIRUBIN,URINE 1+ (NEGATIVE)
--- NOTE | 2023-01-02 14:21 | Diagnostic Imaging Report ---
PROCEDURE: CT abdomen and pelvis with contrast. TECHNIQUE: Multiple contiguous axial images were obtained through the abdomen and pelvis after administration of intravenous contrast. Auto Exposure Controls were utilized during the CT exam to meet ALARA standards for radiation dose reduction. All CT scans use one or more of the following dose optimizing techniques: Automated exposure control, MA and/or KvP adjustment based on patient size and exam type or iterative reconstruction. INDICATION: 77-year-old female, vomiting x9 days. One month post back surgery. Increasing severity of weakness. CORRELATION STUDY: CT abdomen and pelvis 11/19/2019. FINDINGS: LOWER THORAX: Emphysematous changes about the lung bases. No infiltrate with minimal basilar scarring. Heart size is generally normal. Gastroesophageal junction unremarkable. LIVER: Right hepatic lobe cyst. Very mild central intrahepatic bile duct dilatation. GALLBLADDER: Cholecystectomy. Common bile duct normal in size. SPLEEN: Unremarkable. PANCREAS: Unremarkable. ADRENAL GLANDS: Unremarkable. KIDNEYS: Normal configuration. No calcification or obstruction. ABDOMINAL AORTA: Moderate wall calcification, nonaneurysmal. GASTROINTESTINAL TRACT: No gastrointestinal tract obstruction. Very mild stool retention in the colon which is largely otherwise decompressed. There is wall thickening, particularly of the proximal ascending and transverse colon. Normal appendix. No abdominal ascites and/or free air. URINARY BLADDER: Unremarkable. REPRODUCTIVE: Hysterectomy. OSSEOUS STRUCTURES: Extensive prior surgical changes with decompression at L3-L4 with posterior fusion L2-L5. Grade 1 spondylolisthesis of L3 on L4 and L4 on L5. Marked burst fracture of L1 with vertebral plana present. Mild retropulsion into the spinal canal with resultant canal stenosis. Soft tissue distortion with edema and very small fluid collections are present. Focal encapsulated fluid collection measures 15 mm. OTHER: None. IMPRESSION: 1. No gastrointestinal tract obstruction. There is wall thickening of the proximal colon. May very well be due to its collapsed state. Colitis considered less likely but not excluded. 2. Postoperative changes of posterior decompression and fusion. There is soft tissue distortion and edema in the operative bed. Very small encapsulated fluid collection, nonspecific, could be reflective of a seroma, hematoma, or even perhaps very small abscess. Dictated by: Dictated on workstation # [id number]
[2023-01-02] MEDS ORDERED: cefTRIAXone PRE-MIX 50 ML IV STA (14:38)
[2023-01-02] MEDS ORDERED: cefTRIAXone PRE-MIX 50 ML IV SCH (19:00)
[2023-01-02 19:57] VITALS: BP 147/72
[2023-01-02] MEDS ORDERED: ONDANSETRON 4 MG/2 ML (SDV) Z0FRAN IVP PRN (20:30)
[2023-01-02] MEDS ORDERED: NS IV 500 ML 500 ML IV PRN (21:30)
[2023-01-02 22:04] LABS: CALCIUM 9.3 MG/DL (8.5-10.1); CREATININE SERUM 0.7 MG/DL (0.60-1.30); PHOSPHORUS 2.9 MG/DL (2.3-4.7)
[2023-01-02 22:06] LABS: POTASSIUM 2.1 MMOL/L (3.6-5.0)
[2023-01-02 22:07] LABS: MAGNESIUM 1.5 MG/DL (1.6-2.4)
[2023-01-02] MEDS: PROMETHAZINE INJ 25 MG/ML (PHENERGAN) AMP IVP PRN (22:55)
[2023-01-02] MEDS: POTASSIUM CL 10MEQ/50ML IVPB 50 ML IV SCH ×2 (22:55→23:18)
[2023-01-02] MEDS: MAGNESIUM 1 GM/100 ML IVPB 100 ML IV SCH (22:56)
[2023-01-02 23:17] VITALS: BP 179/95
[2023-01-03] MEDS: MAGNESIUM 1 GM/100 ML IVPB 100 ML IV SCH ×2 (00:16→01:07)
[2023-01-03] MEDS: POTASSIUM CL 10MEQ/50ML IVPB 50 ML IV SCH ×7 (00:16→07:54)
[2023-01-03] MEDS ORDERED: FURO-125 PO (00:41)
[2023-01-03] MEDS: PROMETHAZINE INJ 25 MG/ML (PHENERGAN) AMP IVP PRN (03:02)
[2023-01-03 03:03] VITALS: BP 148/75
[2023-01-03 05:02] LABS: BASOPHILS % (AUTO) 0 % (0-10); EOSINOPHILS # (AUTO) 0.4 10^3/uL (0.0-0.3); EOSINOPHILS % (AUTO) 6 % (0-10); HEMATOCRIT 32 % (35-52); LYMPHOCYTES # (AUTO) 1.6 10^3/uL (1.0-4.0); LYMPHOCYTES % (AUTO) 22 % (12-44); MEAN CORPUSCULAR HEMOGLOBIN 24 pg (25-34); MEAN CORPUSCULAR HGB CONC 31 g/dL (32-36); MEAN CORPUSCULAR VOLUME 76 fL (80-99); MEAN PLATELET VOLUME 9.3 fL (9.0-12.2); MONOCYTES # (AUTO) 0.9 10^3/uL (0.0-1.0); MONOCYTES % (AUTO) 12 % (0-12); NEUTROPHILS # (AUTO) 4.2 10^3/uL (1.8-7.8); NEUTROPHILS % (AUTO) 60 % (42-75); PLATELET COUNT 190 10^3/uL (130-400); WHITE BLOOD COUNT 7.1 10^3/uL (4.3-11.0)
[2023-01-03 05:23] LABS: ALBUMIN 2.9 GM/DL (3.2-4.5); BILIRUBIN,TOTAL 0.4 MG/DL (0.1-1.0); CALCIUM 9.2 MG/DL (8.5-10.1); CREATININE SERUM 0.72 MG/DL (0.60-1.30); MAGNESIUM 2.9 MG/DL (1.6-2.4); PHOSPHORUS 2.5 MG/DL (2.3-4.7); POTASSIUM 2.6 MMOL/L (3.6-5.0); TOTAL PROTEIN 4.8 GM/DL (6.4-8.2)
[2023-01-03] MEDS ORDERED: KCL 20 MEQ TAB (K-DUR) PO ONE ×2 (05:45→10:00)
[2023-01-03] MEDS ORDERED: MAGNESIUM 1 GM/100 ML IVPB 100 ML IV SCH (06:00)
[2023-01-03] MEDS ORDERED: POTASSIUM BICARB 20 MEQ (EFFER-K) TABLET PO SCH (06:00)
[2023-01-03] MEDS ORDERED: POTASSIUM CL 10MEQ/50ML IVPB 50 ML IV SCH (06:00)
[2023-01-03] MEDS ORDERED: KCL 20 MEQ TAB (K-DUR) PO SCH (06:00)
[2023-01-03 07:29] VITALS: BP 131/62
[2023-01-03] MEDS ORDERED: KCL 20 MEQ TAB (K-DUR) PO NR (09:30)
[2023-01-03 11:13] VITALS: BP 130/62
[2023-01-03] MEDS ORDERED: cefTRIAXone PRE-MIX 50 ML IV SCH (12:00)
[2023-01-03] MEDS ORDERED: cefTRIAXone 1 GM/NS 50 ML IVPB IV SCH ×2 (12:00)
[2023-01-03 13:21] LABS: CALCIUM 9.2 MG/DL (8.5-10.1); CREATININE SERUM 0.78 MG/DL (0.60-1.30); POTASSIUM 3.8 MMOL/L (3.6-5.0)
[2023-01-03] MEDS ORDERED: FERR-84 PO (14:08)
[2023-01-03] MEDS ORDERED: DOCU100C37 PO (14:08)
[2023-01-03] MEDS ORDERED: FURO40TA4 PO (14:08)
[2023-01-03] MEDS ORDERED: POLY17PO6 PO (14:08)
[2023-01-03] MEDS ORDERED: ZOLP5TAB PO (14:08)
[2023-01-03] MEDS ORDERED: TIOT18CA2 IH (14:08)
[2023-01-03] MEDS ORDERED: BUDE10.2 IH (14:08)
[2023-01-03] MEDS ORDERED: CALC600T91 PO (14:08)
[2023-01-03] MEDS ORDERED: ALBU8.5H6 INH (14:08)
[2023-01-03] MEDS ORDERED: BISA-65 PO (14:08)
[2023-01-03] MEDS ORDERED: MIDO5TAB3 PO (14:08)
[2023-01-03] MEDS ORDERED: ROSU40TA23 PO (14:08)
[2023-01-03] MEDS ORDERED: MV-M1TAB38 PO (14:08)
[2023-01-03] MEDS ORDERED: MAGN400T39 PO (14:08)
--- NOTE | 2023-01-03 14:39 | Short Stay Summary ---
History of Present Illness History of Present Illness Reason for visit/HPI 77 yo F that presented with fatigue and N/V. Patient recently had back surgery at the beginning of November she then went to rehab and got out December 24. Daughter states that the day after she got home she started not feeling well and started having N/V. Patient states that she has not been able to tolerate food for 3 days. Date of Admission Jan 02, 2023 at 18:15 Date of Discharge 01/03/2023 Time Seen by Provider: 11:00 Attending Physician Andres Beck MD Admitting Physician Admitting Physician: Paul Quinones MD Attending Physician: Paul Quinones MD Consult Allergies and Home Medications Allergies Coded Allergies: amoxicillin (Verified Allergy, Mild, Diarrhea, 07/06/20) Diarrhea clavulanic acid (Verified Allergy, Mild, Diarrhea, 07/06/20) Diarrhea Patient Home Medication List Home Medication List Reviewed: Yes Albuterol Sulfate (Ventolin Hfa) 90 Mcg Hfa.aer.ad, 2 PUFF INH Q6H PRN for SHORTNESS OF BREATH, (Reported) Entered as Reported by: SAÚL ALEJANDRA on 01/03/231407 Last Action: Reviewed Bisacodyl (Dulcolax) 5 Mg Tablet.dr, 5 MG PO BID PRN for CONSTIPATION-4TH LINE, (Reported) Entered as Reported by: SAÚL ALEJANDRA on 01/03/231407 Last Action: Reviewed Budesonide/Formoterol Fumarate (Symbicort 160-4.5 Mcg Inhaler) 160 Mcg-4.5 Mcg/Actuation Hfa.aer.ad, 2 PUFF IH BID, (Reported) Entered as Reported by: SAÚL ALEJANDRA on 01/03/231407 Last Action: Reviewed Calcium Carbonate (Calcium) 600 Mg Calcium (1500 Mg) Tablet, 600 MG PO DAILY, (Reported) Entered as Reported by: SAÚL ALEJANDRA on 01/03/231407 Last Action: Reviewed Carvedilol (Carvedilol) 25 Mg Tablet, 25 MG PO BID, (Reported) Entered as Reported by: RAVINDER DAVIDSON on 07/06/20 1522 Last Action: Reviewed Docusate Sodium (Docusate Sodium) 100 Mg Capsule, 100 MG PO DAILY PRN for CONSTIPATION-1ST LINE, (Reported) Entered as Reported by: SAÚL ALEJANDRA on 01/03/231407 Last Action: Reviewed Ferrous Sulfate (Iron) 325 Mg (65 Mg Iron) Tablet, 325 MG PO DAILY, (Reported) Entered as Reported by: SAÚL ALEJANDRA on 01/03/231407 Last Action: Reviewed Furosemide (Furosemide) 40 Mg Tablet, 40 MG PO DAILY PRN for FLUID RETNETION, (Reported) Entered as Reported by: SAÚL ALEJANDRA on 01/03/231407 Last Action: Reviewed Magnesium Oxide (Magnesium) 400 Mg Magnesium Tablet, 400 MG PO DAILY, (Reported) Entered as Reported by: SAÚL ALEJANDRA on 01/03/231407 Last Action: Reviewed Midodrine HCl (Midodrine HCl) 5 Mg Tablet, 5 MG PO TID PRN for LOW BLODD PRESSURE, (Reported) Entered as Reported by: SAÚL ALEJANDRA on 01/03/231407 Last Action: Reviewed Mv-Mn/FA/Vit K/Lycop/Lut/Zeaxa (Ocuvite Eye + Multi Tablet) 200 Mcg-15 Mcg-150 Mcg-5 Mg-1 Mg Tablet, 1 EACH PO DAILY, (Reported) Entered as Reported by: SAÚL ALEJANDRA on 01/03/231407 Last Action: Reviewed Polyethylene Glycol 3350 (Miralax) 17 Gram Powd.pack, 17 GM PO DAILY, (Reported) Entered as Reported by: SAÚL ALEJANDRA on 01/03/231407 Last Action: Reviewed Rosuvastatin Calcium (Rosuvastatin Calcium) 40 Mg Tablet, 40 MG PO HS, (Reported) Entered as Reported by: SAÚL ALEJANDRA on 01/03/231407 Last Action: Reviewed Tiotropium [place] (Spiriva) 18 Mcg Aerp, 1 INH IH DAILY, (Reported) Entered as Reported by: SAÚL ALEJANDRA on 01/03/231407 Last Action: Reviewed Zolpidem Tartrate (Ambien) 5 Mg Tablet, 5 MG PO HS, (Reported) Entered as Reported by: SAÚL ALEJANDRA on 01/03/231407 Last Action: Reviewed Discontinued Medications Albuterol Sulfate (Ventolin Hfa) 1 Puff Puff, 2 PUFF IH Q4H PRN for SHORTNESS OF BREATH, (Reported) Discontinued Reason: No Longer Taking Entered as Reported by: RAVINDER DAVIDSON on 07/06/201521 Last Action: Discontinued Aspirin (Aspirin EC) 81 Mg Tablet.dr, 81 MG PO DAILY, (Reported) Discontinued Reason: No Longer Taking Entered as Reported by: MEGHNA LUCERO on 06/04/221316 Last Action: Discontinued Calcium Carbonate (Calcium) 600 Mg Calcium (1500 Mg) Tablet, 600 MG PO DAILY, (Reported) Discontinued Reason: No Longer Taking Entered as Reported by: MGEHNA LUCERO on 06/04/221316 Last Action: Discontinued Cholecalciferol (Vitamin D3) (Vitamin D3) 50 Mcg Capsule, 50 MCG PO DAILY, (Reported) Discontinued Reason: No Longer Taking Entered as Reported by: RAVINDER DAVIDSON on 07/06/201521 Last Action: Discontinued Fluticasone/Salmeterol (Advair 100-50 Diskus) 1 Each Blst.w.dev, 1 EACH IH BID, (Reported) Discontinued Reason: No Longer Taking Entered as Reported by: RAVINDER DAVIDSON on 07/06/201521 Last Action: Discontinued Furosemide (Lasix) 20 Mg Tablet, 20 MG PO DAILY Discontinued Reason: No Longer Taking Prescribed by: ROSALES PATTON on 01/03/2340 Last Action: Discontinued Losartan Potassium (Losartan Potassium) 50 Mg Tablet, 50 MG PO DAILY Discontinued Reason: No Longer Taking Prescribed by: ROSALES PATTON on 06/04/22144 Last Action: Discontinued Melatonin (Melatonin) 10 Mg Capsule, 10 MG PO HS, (Reported) Discontinued Reason: No Longer Taking Entered as Reported by: RAVINDER DAVIDSON on 07/06/201521 Last Action: Discontinued Rosuvastatin Calcium (Rosuvastatin Calcium) 40 Mg Tablet, 40 MG PO DAILY Discontinued Reason: No Longer Taking Prescribed by: ROSALES PATTON on 06/04/22144 Last Action: Discontinued Tiotropium [place] (Spiriva) 1 Inh Aerp, 1 INH IH DAILY, (Reported) Discontinued Reason: No Longer Taking Entered as Reported by: RAVINDER DAVIDSON on 07/06/201521 Last Action: Discontinued Zolpidem Tartrate (Ambien) 10 Mg Tablet, 5 MG PO HS PRN for INSOMNIA, (Reported) Discontinued Reason: No Longer Taking Entered as Reported by: RAVINDER DAVIDSON on 07/06/20 1522 Last Action: Discontinued Past Ulknuhn-Ifipmh-Mokngd Hx Patient Social History Living Status: Lives at home independent Smoking Status: Former Smoker Former Smoker, Quit: Sep 24, 1994 2nd Hand Smoke Exposure: Yes Recent Hopitalizations: No Alcohol Use?: No Pt feels they are or have been: No Immunizations Up To Date Tetanus Booster (TDap): Less than 5yrs Date of Pneumonia Vaccine: Oct 02, 2016 Date of Influenza Vaccine: Jun 28, 2020 Seasonal Allergies Seasonal Allergies: No Surgeries Yes (Foot surgery, Cornary stents x 3 w/ heart cath) Gallbladder, Hysterectomy, Tonsillectomy Respiratory Yes Cardiovascular Yes (Heart stents X 24 Jan 2017) Coronary Artery Disease, High Cholesterol, Hypertension Neurological No Reproductive System Sexually Transmitted Disease: No HIV/AIDS: No Genitourinary No Gastrointestinal Yes (DYSPHAGIA, HOARSNESS) Musculoskeletal Yes Arthritis, Chronic Back Pain Endocrine History of Endocrine Disorders: No HEENT History of HEENT Disorders: Yes (GLASSES) Loss of Vision: Denies Hearing Impairment: Denies Cancer No Psychosocial History of Psychiatric Problem: No Integumentary History of Skin or Integumenta: No Blood Transfusions History of Blood Disorders: No Adverse Reaction to a Blood Tr: No (N/A) Review of Systems Constitutional: no symptoms reported; No chills, No fever EENTM: no symptoms reported; No mouth pain, No nose congestion, No nose pain Respiratory: no symptoms reported; No cough, No dyspnea on exertion, No short of breath Cardiovascular: no symptoms reported; No chest pain, No edema, No palpitations Gastrointestinal: no symptoms reported; No abdominal pain, No constipation, No diarrhea, No nausea, No vomiting Genitourinary: no symptoms reported; No dysuria, No frequency, No hematuria : No Musculoskeletal: back pain Skin: no symptoms reported Psychiatric/Neurological: No Symptoms Reported Physical Exam Vital Signs Vital Signs - First Documented 01/02/23 01/02/23 12:31 15:51 Temp 36.6 Pulse 79 Resp 16 B/P (MAP) 133/68 (89) Pulse Ox 94 O2 Delivery Room Air Capillary Refill : Height, Weight, BMI Height: '" Weight: lbs. oz. kg; 25.15 BMI Method: General Appearance: No Apparent Distress, WD/WN, Thin HEENT: PERRL/EOMI Neck: Full Range of Motion, Normal Inspection, Supple Respiratory: Chest Non Tender, Normal Breath Sounds, No Accessory Muscle Use, No Respiratory Distress Cardiovascular: Regular Rate, Rhythm, No Edema, No Murmur Gastrointestinal: Normal Bowel Sounds, Non Tender, Soft Back: No CVA Tenderness, No Vertebral Tenderness Extremity: Normal Range of Motion, Non Tender, No Calf Tenderness, No Pedal Edema Neurologic/Psychiatric: Alert, Oriented x3, No Motor/Sensory Deficits, Normal Mood/Affect, remote recruiter II-XII Norm as Tested Skin: Normal Color, Warm/Dry Lymphatic: No Adenopathy Short Stay Diagnosis Discharge Diagnosis-Short Stay Admission Diagnosis: Hypokalemia Hyponatremia N/V Recent back surgery Final Discharge Diagnosis: See Above Conclusion Labs Laboratory Tests 01/02/23 18:50: Magnesium Level 1.6 01/02/23 21:13: Magnesium Level 1.5L, Sodium Level 131L, Potassium Level 2.1*L, Chloride Level 88L, Carbon Dioxide Level 29, Anion Gap 14, Blood Urea Nitrogen 8, Creatinine 0.70, Estimat Glomerular Filtration Rate 88, BUN/Creatinine Ratio 11, Glucose Level 105, Calcium Level 9.3, Phosphorus Level 2.9 01/03/23 04:26: Magnesium Level 2.9H, Sodium Level 133L, Potassium Level 2.6L, Chloride Level 92L, Carbon Dioxide Level 29, Anion Gap 12, Blood Urea Nitrogen 7, Creatinine 0.72, Estimat Glomerular Filtration Rate 85, BUN/Creatinine Ratio 10, Glucose Level 96, Calcium Level 9.2, Phosphorus Level 2.5, White Blood Count 7.1, Red Blood Count 4.17, Hemoglobin 10.0L, Hematocrit 32L, Mean Corpuscular Volume 76L, Mean Corpuscular Hemoglobin 24L, Mean Corpuscular Hemoglobin Concent 31L, Red Cell Distribution Width 17.8H, Platelet Count 190, Mean Platelet Volume 9.3, Immature Granulocyte % (Auto) 0, Neutrophils (%) (Auto) 60, Lymphocytes (%) (Auto) 22, Monocytes (%) (Auto) 12, Eosinophils (%) (Auto) 6, Basophils (%) (Auto) 0, Neutrophils # (Auto) 4.2, Lymphocytes # (Auto) 1.6, Monocytes # (Auto) 0.9, Eosinophils # (Auto) 0.4H, Basophils # (Auto) 0.0, Immature Granulocyte # (Auto) 0.0, Corrected Calcium 10.1, Total Bilirubin 0.4, Aspartate Amino Transf (AST/SGOT) 22, Alanine Aminotransferase (ALT/SGPT) 18, Alkaline Phosphatase 141H , Total Protein 4.8L, Albumin 2.9L 01/03/23 12:44: Sodium Level 133L, Potassium Level 3.8, Chloride Level 96L, Carbon Dioxide Level 27, Anion Gap 10, Blood Urea Nitrogen 7, Creatinine 0.78, Estimat Glomerular Filtration Rate 77, BUN/Creatinine Ratio 9, Glucose Level 125H, Calcium Level 9.2 Microbiology 01/02/23 Blood Culture - Preliminary, Resulted Gram Positive Cocci in Cluster Conclusion/Plan 77 yo F - Hypokalemia: replaced and normal prior to d/c, she is tolerating PO diet and feeling much better. - Hyponatremia: Improving - N/V: Resolved - Recent Back surgery: Keep f.u appt with back surgeon PAUL QUINONES MD Jan 03, 2023 14:39
[2023-01-03] MEDS ORDERED: POTA-169 PO (14:49)
--- NOTE | 2023-01-03 14:50 | Discharge Summary ---
Discharge [facility] Reconcile Patient Problems Problems Reviewed?: Yes Discharge Medications New, Converted or Re-Newed RX: Transmitted to Pharmacy New Medications: Potassium Chloride (Klor-Con M20) 20 Meq Tab.er.prt 40 MEQ PO DAILY@0600 for 5 Days, #5 EACH Continued Medications: Albuterol Sulfate (Ventolin Hfa) 90 Mcg Hfa.aer.ad 2 PUFF INH Q6H PRN for SHORTNESS OF BREATH Bisacodyl (Dulcolax) 5 Mg Tablet.dr 5 MG PO BID PRN for CONSTIPATION-4TH LINE, TAB Budesonide/Formoterol Fumarate (Symbicort 160-4.5 Mcg Inhaler) 160 Mcg-4.5 Mcg/Actuation Hfa.aer.ad 2 PUFF IH BID, EA Calcium Carbonate (Calcium) 600 Mg Calcium (1500 Mg) Tablet 600 MG PO DAILY, TAB Carvedilol (Carvedilol) 25 Mg Tablet 25 MG PO BID, TAB Docusate Sodium (Docusate Sodium) 100 Mg Capsule 100 MG PO DAILY PRN for CONSTIPATION-1ST LINE, CAP Ferrous Sulfate (Iron) 325 Mg (65 Mg Iron) Tablet 325 MG PO DAILY, TAB Furosemide (Furosemide) 40 Mg Tablet 40 MG PO DAILY PRN for FLUID RETNETION, TAB Magnesium Oxide (Magnesium) 400 Mg Magnesium Tablet 400 MG PO DAILY, TAB Midodrine HCl (Midodrine HCl) 5 Mg Tablet 5 MG PO TID PRN for LOW BLODD PRESSURE, TAB Mv-Mn/FA/Vit K/Lycop/Lut/Zeaxa (Ocuvite Eye + Multi Tablet) 200 Mcg-15 Mcg-150 Mcg-5 Mg-1 Mg Tablet 1 EACH PO DAILY, TAB Polyethylene Glycol 3350 (Miralax) 17 Gram Powd.pack 17 GM PO DAILY, EACH Rosuvastatin Calcium (Rosuvastatin Calcium) 40 Mg Tablet 40 MG PO HS, TAB Tiotropium [place] (Spiriva) 18 Mcg Aerp 1 INH IH DAILY, EA Zolpidem Tartrate (Ambien) 5 Mg Tablet 5 MG PO HS, TAB Patient Instructions Goal/Follow Up Appt: F/u with PCP 1-2 weeks Activity & Diet Discharge Diet: No Restrictions Activity as Tolerated: Yes PAUL QUINONES MD Jan 03, 2023 14:50
[2023-01-03 15:19] VITALS: BP 120/58
[2023-01-03 15:39] VITALS: BP 120/58
== END 2023-01-03 14:45 | disposition home or self-care (01) ==
LOC: EDUNIT# 12:14 → ER FS 12:15 → 4TH 18:15 → UNDOADMOB 18:15 → 4TH 18:36 → UNDODISOB 01-03 14:45
PROVIDERS: ADMIT Family Medicine; ATTEND Family Medicine
DX: E87.6 Hypokalemia (principal); E87.1 Hypo-osmolality and hyponatremia; N30.00 Acute cystitis without hematuria; L76.32 Postprocedural hematoma of skin and subcutaneous tissue following other procedure; R11.2 Nausea with vomiting, unspecified; Z98.890 Other specified postprocedural states; Z87.891 Personal history of nicotine dependence
CPT/HCPCS: 36415; 74177; 80048 ×2; 80053 ×2; 81000; 83605; 83690; 83735 ×3; 84100 ×2; 84484; 85025 ×2; 87040; 87088; 87636; 93005; 96366; 96375; 96376 ×2; 99284; G0378; Q9967